=== PATIENT | female | born 1945 | race Hispanic/Latino ===

== ENCOUNTER → 2017-12-01 | Outpatient (CLI) | payer OTHER ==
[~2017-12-01] MED LIST: LISI-613 PO; NAPR-1023 PO
== END | disposition home or self-care (01) ==
LOC: OIH 12:49
PROVIDERS: ATTEND Internal Medicine Cardiovascular Disease
DX: Z13.6 Encounter for screening for cardiovascular disorders (principal)
CPT/HCPCS: 75571

== ENCOUNTER 2019-09-16 07:38 | Emergency (ER) | payer MEDICARE ==
[2019-09-16 08:21] LABS: APPEARANCE,URINE Clear (CLEAR); BILIRUBIN,URINE Negative (NEGATIVE); COLOR,URINE Yellow (YELLOW); GLUCOSE, URINE (UA) Negative (NEGATIVE); KETONES,URINE Negative (NEGATIVE); LEUKOCYTE ESTERASE ,URINE Trace (NEGATIVE); NITRATE,URINE Negative (NEGATIVE); OCCULT BLOOD,URINE Negative (NEGATIVE); PROTEIN,URINE Negative (NEGATIVE)
[2019-09-16 08:45] LABS: BACTERIA,URINE Few /HPF (None Seen); RBC,URINE 0-1 /HPF (0-1)
[2019-09-16 09:01] LABS: BASOPHILS % (AUTO) 0.2 % (0.0-5.0); EOSINOPHILS % (AUTO) 0.4 % (0.0-8.0); HEMATOCRIT 35.6 % (36-48); LYMPHOCYTES % (AUTO) 15.1 % (21.0-51.0); MEAN CORPUSCULAR HEMOGLOBIN 30.9 pg (27.0-33.0); MEAN CORPUSCULAR VOLUME 90.8 fL (79-99); MONOCYTES % (AUTO) 8.9 % (3.0-13.0); PLATELET COUNT (AUTO) 157 K/uL (130-400); RED BLOOD CELL COUNT(AUTO) 3.92 MIL/uL (4.00-5.50); RED CELL DISTRIBUTION WIDTH 14.6 % (11.0-15.5); WHITE BLOOD COUNT (AUTO) 4.7 K/uL (4.8-10.8)
[2019-09-16 09:17] LABS: CREATININE 1.3 mg/dL (0.5-1.5); POTASSIUM 3.6 mmol/L (3.5-5.1)
[2019-09-16 09:23] LABS: ALBUMIN 3.5 g/dL (3.5-5.0); BILIRUBIN,TOTAL 0.9 mg/dL (0.2-1.0); TOTAL PROTEIN, SERUM 7.3 g/dL (6.0-8.3)
== END 2019-09-16 09:38 | disposition home or self-care (01) ==
LOC: EDH 07:38
DX: R42 Dizziness and giddiness (principal); F41.9 Anxiety disorder, unspecified; I10 Essential (primary) hypertension; F32.9 Major depressive disorder, single episode, unspecified; Z79.899 Other long term (current) drug therapy; Z98.890 Other specified postprocedural states
CPT/HCPCS: 36415; 71045; 80053; 81001; 84484; 85025; 93005

== ENCOUNTER → 2020-12-17 | Outpatient (CLI) | payer SELFPAY ==
[~2020-12-17] MED LIST changes: -LISI-613 PO; +LISI20TA24 PO
== END | disposition home or self-care (01) ==
LOC: RAH 10:56
PROVIDERS: ATTEND Internal Medicine Cardiovascular Disease
DX: Z13.6 Encounter for screening for cardiovascular disorders (principal); I25.10 Atherosclerotic heart disease of native coronary artery without angina pectoris
CPT/HCPCS: 75571

== ENCOUNTER → 2021-06-05 | Outpatient (CLI) | payer MEDICARE ==
[~2021-06-05] MED LIST changes: +GADOTERATE MEGLUMINE 10 MMOL/20 ML VIAL IV ONE
== END | disposition home or self-care (01) ==
LOC: RAH 12:35
PROVIDERS: ATTEND Family Medicine
DX: G44.89 Other headache syndrome (principal); R42 Dizziness and giddiness
CPT/HCPCS: 70553; A9575

== ENCOUNTER 2022-02-12 07:17 | Emergency (ER) | payer MEDICARE ==
[~2022-02-12] VITALS: Ht 152.4 cm; Wt 77.1 kg
[~2022-02-12 07:17] MED LIST changes: -GADOTERATE MEGLUMINE 10 MMOL/20 ML VIAL IV ONE
[2022-02-12 07:52] LABS: BASOPHILS % (AUTO) 0.6 % (0.0-5.0); EOSINOPHILS % (AUTO) 5.1 % (0.0-8.0); HEMATOCRIT 41.8 % (36-48); LYMPHOCYTES % (AUTO) 40.9 % (21.0-51.0); MEAN CORPUSCULAR HEMOGLOBIN 31.8 pg (27.0-33.0); MEAN CORPUSCULAR VOLUME 93.7 fL (79-99); MONOCYTES % (AUTO) 11.4 % (3.0-13.0); NEUTROPHILS % (AUTO) 41.6 % (40.0-77.0); PLATELET COUNT (AUTO) 175 K/uL (130-400); RED BLOOD CELL COUNT(AUTO) 4.46 MIL/uL (4.00-5.50); RED CELL DISTRIBUTION WIDTH 13.2 % (11.0-15.5); WHITE BLOOD COUNT (AUTO) 4.7 K/uL (4.8-10.8)
[2022-02-12 08:06] LABS: INR 0.94 (0.85-1.15); PROTHROMBIN TIME 10.3 SEC (9.6-11.6)
[2022-02-12 08:16] LABS: ALBUMIN 3.9 g/dL (3.5-5.0); BILIRUBIN,TOTAL 0.9 mg/dL (0.2-1.0); POTASSIUM 3.2 mmol/L (3.5-5.1)
[2022-02-12 08:25] LABS: MAGNESIUM 2.2 mg/dL (1.80-2.40)
[2022-02-12] MEDS ORDERED: POTASSIUM BICARB/CIT AC 25 MEQ TABLET.EFF PO ONE (10:00)
[2022-02-12 10:24] LABS: APPEARANCE,URINE Clear (CLEAR); BILIRUBIN,URINE Negative (NEGATIVE); COLOR,URINE Yellow (YELLOW); GLUCOSE, URINE (UA) Negative (NEGATIVE); KETONES,URINE Negative (NEGATIVE); LEUKOCYTE ESTERASE ,URINE Small (NEGATIVE); NITRATE,URINE Negative (NEGATIVE); OCCULT BLOOD,URINE Negative (NEGATIVE); PH,URINE 5.5 (5.0-8.0); PROTEIN,URINE Negative (NEGATIVE)
[2022-02-12 11:07] LABS: BACTERIA,URINE Rare /HPF (None Seen); RBC,URINE 0-1 /HPF (0-1); SQUAMOUS EPITHELIAL CELL,UR Few /HPF (0-2); WBC,URINE 0-1 /HPF (0-1)
[2022-02-12 13:13] VITALS: BP 117/76
== END 2022-02-12 14:07 | disposition home or self-care (01) ==
LOC: EDH 07:17
DX: E87.6 Hypokalemia (principal); B34.9 Viral infection, unspecified; R42 Dizziness and giddiness; R07.89 Other chest pain; Z20.822 Contact with and (suspected) exposure to COVID-19; E78.00 Pure hypercholesterolemia, unspecified; I10 Essential (primary) hypertension; Z79.1 Long term (current) use of non-steroidal anti-inflammatories (NSAID); Z79.899 Other long term (current) drug therapy
CPT/HCPCS: 36415; 71045; 80053; 81001; 83605; 83735; 84484 ×2; 85025; 85610; 87040 ×2; 87635; 87804 ×2; 93005 ×2; 99285; C9803

== ENCOUNTER 2023-01-20 09:59 | Emergency (ER) | payer MEDICARE ==
[~2023-01-20] VITALS: Ht 152.4 cm; Wt 78.5 kg
[2023-01-20 10:40] LABS: BASOPHILS % (AUTO) 0.5 % (0.0-5.0); EOSINOPHILS % (AUTO) 5.3 % (0.0-8.0); HEMATOCRIT 42.3 % (36-48); LYMPHOCYTES % (AUTO) 29.5 % (21.0-51.0); MEAN CORPUSCULAR HEMOGLOBIN 31.6 pg (27.0-33.0); MEAN CORPUSCULAR HGB CONC 33.8 g/dL (32.0-36.0); MEAN CORPUSCULAR VOLUME 93.4 fL (79-99); MONOCYTES % (AUTO) 14.1 % (3.0-13.0); NEUTROPHILS % (AUTO) 50.6 % (40.0-77.0); PLATELET COUNT (AUTO) 182 K/uL (130-400); RED BLOOD CELL COUNT(AUTO) 4.53 MIL/uL (4.00-5.50); RED CELL DISTRIBUTION WIDTH 13.2 % (11.0-15.5)
[2023-01-20 10:52] LABS: CREATININE 0.8 mg/dL (0.5-1.5); POTASSIUM 4.1 mmol/L (3.5-5.1)
[2023-01-20 10:57] LABS: ALBUMIN 4.1 g/dL (3.5-5.0); TOTAL PROTEIN, SERUM 8.1 g/dL (6.0-8.3)
[2023-01-20] MEDS ORDERED: METH4TAB3 PO (13:02)
[2023-01-20 13:39] VITALS: BP 133/63
== END 2023-01-20 13:40 | disposition home or self-care (01) ==
LOC: EDH 09:59
DX: S83.92XA Sprain of unspecified site of left knee, initial encounter (principal); S20.219A Contusion of unspecified front wall of thorax, initial encounter; E78.00 Pure hypercholesterolemia, unspecified; I10 Essential (primary) hypertension; Z79.899 Other long term (current) drug therapy; W18.2XXA Fall in (into) shower or empty bathtub, initial encounter; Y93.E1 Activity, personal bathing and showering; Y92.89 Other specified places as the place of occurrence of the external cause; Y99.8 Other external cause status
CPT/HCPCS: 29505; 36415; 71250; 73562; 80053; 85025

== ENCOUNTER 2023-05-06 19:44 | Emergency (ER) | payer MEDICARE ==
[~2023-05-06] VITALS: Ht 152.4 cm; Wt 76.7 kg
[~2023-05-06 19:44] MED LIST changes: +METH4TAB3 PO
[2023-05-06] MEDS ORDERED: ASPIRIN 81MG CHEW TAB ONE (20:18)
[2023-05-06] MEDS: NITROGLYCERIN 0.4 MG SL TAB SL PRN ×3 (20:22→20:37)
[2023-05-06] MEDS ORDERED: ASPIRIN 81MG CHEW TAB PO ONE (20:30)
[2023-05-06 20:33] LABS: BASOPHILS # (AUTO) 0.02 K/uL (0.00-0.20); BASOPHILS % (AUTO) 0.4 % (0.0-5.0); EOSINOPHILS # (AUTO) 0.12 K/uL (0.00-0.70); EOSINOPHILS % (AUTO) 2.7 % (0.0-8.0); HEMATOCRIT 39.8 % (36-48); IMMATURE GRANULOCYTE ABSOLUTE 0.01 K/uL (0-1); LYMPHOCYTES # (AUTO) 1.3 K/uL (1.0-4.8); LYMPHOCYTES % (AUTO) 29.1 % (21.0-51.0); MEAN CORPUSCULAR HEMOGLOBIN 32.1 pg (27.0-33.0); MEAN CORPUSCULAR HGB CONC 34.2 g/dL (32.0-36.0); MEAN CORPUSCULAR VOLUME 93.9 fL (79-99); MONOCYTES # (AUTO) 0.6 K/uL (0.1-1.0); MONOCYTES % (AUTO) 14.2 % (3.0-13.0); NEUTROPHILS # (AUTO) 2.4 K/uL (1.8-7.7); NEUTROPHILS % (AUTO) 53.4 % (40.0-77.0); PLATELET COUNT (AUTO) 174 K/uL (130-400); RED BLOOD CELL COUNT(AUTO) 4.24 MIL/uL (4.00-5.50); RED CELL DISTRIBUTION WIDTH 12.8 % (11.0-15.5); WHITE BLOOD COUNT (AUTO) 4.5 K/uL (4.8-10.8)
[2023-05-06 20:45] LABS: CREATININE 0.8 mg/dL (0.5-1.5)
[2023-05-06 20:49] LABS: ALBUMIN 3.9 g/dL (3.5-5.0); BILIRUBIN,TOTAL 0.4 mg/dL (0.2-1.0); TOTAL PROTEIN, SERUM 7.6 g/dL (6.0-8.3)
[2023-05-06 23:02] VITALS: BP 122/74; PULSE 86; RESP 16; O2SAT 97
[2023-05-06] MEDS ORDERED: ASPI-1012 PO (23:51)
[2023-05-06] MEDS ORDERED: NITR0.4T50 SL (23:51)
== END 2023-05-07 00:22 | disposition home or self-care (01) ==
LOC: EDH 19:44
DX: I20.8 Other forms of angina pectoris (principal); I10 Essential (primary) hypertension; F41.9 Anxiety disorder, unspecified; Z79.52 Long term (current) use of systemic steroids; Z79.899 Other long term (current) drug therapy
CPT/HCPCS: 36415; 71045; 80053; 83690; 84484; 85025; 93005

== ENCOUNTER 2024-04-06 11:40 | Emergency (ER) | payer OTHER, MEDICARE ==
[~2024-04-06] VITALS: Ht 152.4 cm; Wt 75.7 kg
[~2024-04-06 11:40] MED LIST changes: +ASPI-1012 PO; +NITR0.4T50 SL
[2024-04-06 12:20] LABS: BASOPHILS # (AUTO) 0.02 K/uL (0.00-0.20); BASOPHILS % (AUTO) 0.4 % (0.0-5.0); EOSINOPHILS # (AUTO) 0.22 K/uL (0.00-0.70); EOSINOPHILS % (AUTO) 4.1 % (0.0-8.0); HEMATOCRIT 44.7 % (36-48); IMMATURE GRANULOCYTE ABSOLUTE 0.01 K/uL (0-1); LYMPHOCYTES # (AUTO) 1.9 K/uL (1.0-4.8); LYMPHOCYTES % (AUTO) 35.4 % (21.0-51.0); MEAN CORPUSCULAR HEMOGLOBIN 32.1 pg (27.0-33.0); MEAN CORPUSCULAR HGB CONC 34.5 g/dL (32.0-36.0); MEAN CORPUSCULAR VOLUME 93.1 fL (79-99); MONOCYTES # (AUTO) 0.6 K/uL (0.1-1.0); MONOCYTES % (AUTO) 11.5 % (3.0-13.0); NEUTROPHILS # (AUTO) 2.6 K/uL (1.8-7.7); NEUTROPHILS % (AUTO) 48.4 % (40.0-77.0); PLATELET COUNT (AUTO) 197 K/uL (130-400); RED CELL DISTRIBUTION WIDTH 13.1 % (11.0-15.5); WHITE BLOOD COUNT (AUTO) 5.4 K/uL (4.8-10.8)
[2024-04-06 12:21] LABS: APPEARANCE,URINE CLEAR (CLEAR); BILIRUBIN,URINE NEGATIVE (NEGATIVE); COLOR,URINE YELLOW (YELLOW); GLUCOSE, URINE (UA) NEGATIVE (NEGATIVE); KETONES,URINE NEGATIVE (NEGATIVE); LEUKOCYTE ESTERASE ,URINE 250 Leu/uL (NEGATIVE); NITRATE,URINE NEGATIVE (NEGATIVE); OCCULT BLOOD,URINE NEGATIVE (NEGATIVE); PROTEIN,URINE NEGATIVE (NEGATIVE); UROBILINOGEN,URINE 0.2 mg/dL (0.2-1.0)
[2024-04-06 12:26] LABS: ADD UA MICROSCOPIC YES
[2024-04-06 12:28] LABS: MUCUS,URINE RARE LPF (None Seen); SQUAMOUS EPITHELIAL CELL,UR MANY /HPF (0-2)
[2024-04-06 12:30] LABS: CREATININE 0.9 mg/dL (0.5-1.0); POTASSIUM 4.1 mmol/L (3.5-5.1)
[2024-04-06 12:44] LABS: B-TYPE NATRIURETIC PEPTIDE 15 pg/mL (0-100)
[2024-04-06 15:40] VITALS: BP 143/81; PULSE 70; RESP 16; O2SAT 99
[2024-04-06] MEDS ORDERED: MACR100 PO (16:06)
== END 2024-04-06 16:15 | disposition home or self-care (01) ==
LOC: EDH 11:40
DX: N39.0 Urinary tract infection, site not specified (principal); I95.9 Hypotension, unspecified; I10 Essential (primary) hypertension; Z79.82 Long term (current) use of aspirin; Z79.899 Other long term (current) drug therapy; Z98.890 Other specified postprocedural states
CPT/HCPCS: 36415; 71045; 80048; 81001; 82550; 83880; 84484; 85025; 87086; 93005

== ENCOUNTER 2025-01-06 12:44 | Emergency (ER) | payer OTHER, MEDICARE ==
[~2025-01-06] VITALS: Ht 152.4 cm; Wt 76.2 kg
[~2025-01-06 12:44] MED LIST changes: +MACR100 PO; -NAPR-1023 PO; +NAPR-1194 PO
[2025-01-06 13:49] LABS: APPEARANCE,URINE CLEAR (CLEAR); BILIRUBIN,URINE SMALL mg/dL (NEGATIVE); COLOR,URINE YELLOW (YELLOW); GLUCOSE, URINE (UA) NEGATIVE (NEGATIVE); KETONES,URINE NEGATIVE (NEGATIVE); LEUKOCYTE ESTERASE ,URINE MODERATE Leu/uL (NEGATIVE); NITRATE,URINE NEGATIVE (NEGATIVE); OCCULT BLOOD,URINE NEGATIVE (NEGATIVE); PROTEIN,URINE NEGATIVE (NEGATIVE)
[2025-01-06 14:02] LABS: ADD UA MICROSCOPIC YES; RBC,URINE None Seen /HPF (0-1)
[2025-01-06 14:03] LABS: AMORPHOUS SEDIMENT,UR Moderate /LPF (None Seen); BACTERIA,URINE Moderate /HPF (None Seen)
[2025-01-06] MEDS: ketOROlac 15MG/ML VIAL (15MG/ML) IV STA (14:11)
[2025-01-06] MEDS: ondanSETRON 4MG INJ IVP STA (14:11)
[2025-01-06] MEDS: 0.9%NACL 1000ML 1,000 ML IV STA (14:13)
[2025-01-06 14:16] LABS: BASOPHILS # (AUTO) 0.03 K/uL (0.00-0.20); BASOPHILS % (AUTO) 0.7 % (0.0-5.0); EOSINOPHILS # (AUTO) 0.13 K/uL (0.00-0.70); EOSINOPHILS % (AUTO) 2.8 % (0.0-8.0); HEMATOCRIT 46.3 % (36-48); IMMATURE GRANULOCYTE ABSOLUTE 0.01 K/uL (0-1); LYMPHOCYTES # (AUTO) 1.1 K/uL (1.0-4.8); LYMPHOCYTES % (AUTO) 23.5 % (21.0-51.0); MEAN CORPUSCULAR HEMOGLOBIN 24.7 pg (27.0-33.0); MEAN CORPUSCULAR HGB CONC 30.5 g/dL (32.0-36.0); MEAN CORPUSCULAR VOLUME 81.1 fL (79-99); MONOCYTES # (AUTO) 0.5 K/uL (0.1-1.0); MONOCYTES % (AUTO) 11.3 % (3.0-13.0); NEUTROPHILS # (AUTO) 2.8 K/uL (1.8-7.7); NEUTROPHILS % (AUTO) 61.5 % (40.0-77.0); PLATELET COUNT (AUTO) 305 K/uL (130-400); RED BLOOD CELL COUNT(AUTO) 5.71 MIL/uL (4.00-5.50); RED CELL DISTRIBUTION WIDTH 18.8 % (11.0-15.5); WHITE BLOOD COUNT (AUTO) 4.6 K/uL (4.8-10.8)
[2025-01-06 14:18] LABS: POTASSIUM 4.4 mmol/L (3.5-5.1)
[2025-01-06 14:22] LABS: ALBUMIN 3.6 g/dL (3.5-5.0); BILIRUBIN,DIRECT 0.4 mg/dL (0.0-0.3); BILIRUBIN,TOTAL 0.9 mg/dL (0.2-1.0); TOTAL PROTEIN, SERUM 7.7 g/dL (6.0-8.3)
--- NOTE | 2025-01-06 14:29 | HMCIMG ---
US ABDOMINAL RUQ\E\LTD HISTORY: ruq pain TECHNIQUE: US ABDOMINAL RUQ\E\LTD. FINDINGS: LIVER: Diffuse increased echogenicity of the liver is seen suggestive of hepatic parenchymal disease, such as hepatic steatosis. 2 heterogeneous masses seen in the right hepatic lobe measuring 7.7 x 8.3 cm and 3.6 x 3.3 cm. GALLBLADDER: No gallstone or wall thickening is seen. CBD: Measures up to not visualizedcm. PANCREAS: The visualized pancreas appears within normal limits. RIGHT KIDNEY: measures 11.4cm in length. No hydronephrosis or calculi. Study is degraded to prominent bowel gas. IMPRESSION: Hepatic steatosis. 2 hepatic masses are seen in the right hepatic lobe, the largest measuring 8.3 cm.
--- NOTE | 2025-01-06 15:20 | ERN ---
ED Note History of Present Illness Stated Complaint: RUQ PAIN, NAUSEA, DIARRHEA X3 DAYS Chief Complaint: Abdominal Pain Time Seen by MD: 13:16 Time Seen by Midlevel: 13:20 Dictation: 79-year-old female with a history of fatty liver coming in complaining of right upper quadrant pain for three days. Patient states associated symptom of nausea, no vomiting. Patient states she has pain 10/10 was seen by PCP three days ago and was given Tylenol. Patient states the PCP gave her an appointment for [facility] on 01/16. Denies any chest pain, chest discomfort, no fevers, no vomiting. Allergies: Coded Allergies: No Known Drug Allergies (Unverified Allergy, Unknown, 03/03/16) Home Meds Active Scripts Nitrofurantoin/Nitrofuran Mac (Macrobid) 100 Mg Cap, 100 MG PO BID for 5 Days, #10 CAP Prov:RICH [place] 04/06/24 Nitroglycerin (Nitroglycerin) 0.4 Mg Tab.subl, 0.4 MG SL AD, #100 TAB.SL 2 Refills one tab SL as needed for chest pain [max = 3 tabs over fifteen minutes] call 911 if you have chest pain Prov:JAE AMAYA Sr., MD 05/06/23 Aspirin (ASPIRIN) 325 Mg Tablet, 325 MG PO DAILY, #30 TAB 2 Refills Prov:JAE AMAYA Sr., MD 05/06/23 Methylprednisolone (Medrol) 4 Mg Tab.ds.pk, 4 MG PO AD for 6 Days, #1 PACK Prov:JARRET GAITAN MD 01/20/23 Reported Medications Naproxen (Naproxen) 500 Mg Tablet, 500 MG PO [id number] PRN for PAIN LEVEL 1 TO 5, TAB 03/03/16 Lisinopril (Lisinopril) 20 Mg Tablet, 20 MG PO DAILY, TAB 03/03/16 Past Medical History Past Medical History: Gallstones, High Cholesterol, Hypertension Additional Past Medical Hx: VERTIGO Surgical History: Unknown Surgical History Other: LEFT SHOULDER Social History: Negative, Lives with family Review of System Dictation Constitutional: Negative for fever,chills, and weight loss Eyes: Negative for injury, pain,redness, and discharge ENT: Negative for injury,pain or swelling Cardiovascular: Negative for chest pain, palpitations, and edema Respiratory: Negative for shortness of breath, cough, and wheezing, Abdomen/GI: Positive for right upper quadrant pain and nausea, no vomiting, no diarrhea, and no constipation Back: Negative for injury and pain : Negative for injury, bleeding and discharge MS/Extremity: Negative for injury and deformity Skin: Negative for rash, and discoloration Neuro: Negative for headache, weakness, numbness, tingling, and seizure Psych: Negative for suicide ideation, homicidal ideation, and hallucinations Review of Systems: was completed Initial Vital Sign VS Vital Signs Date Time Temp Pulse Resp B/P (MAP) Pulse Ox O2 Delivery O2 Flow Rate FiO2 01/06/25 12:45 98.1 94 14 144/75 98 Room Air 0 Physical Exam Dictation General: awake, alert, NAD Head/Face: Normocephalic, atraumatic Eyes: PERRL, EOMI, vision at baseline ENT: oral cavity clear, TMs clear, no signs of infection Neck: Trachea midline, supple, no nuchal rigidity Cardiovascular: RRR, normal S1/S2, No MRGs, no JVD Respiratory: CTAB, no respiratory distress, No rales or wheezes Abdomen: Soft, non-tender, non-distended, normal bowel sounds, no guarding or re bound. Skin: Warm, dry, normal turgor, no rash MS/Extremity: Pulses equal, no cyanosis, neurovascular intact, FROM Neuro: COAx4, GCS 15, strength 5/5, CN 2-12 intact, normal cerebellar exam, normal gait, Psych: Normal behavior, mood, and affect normal Results (Laboratory/Radiology) Laboratory/Radiology Laboratory Tests Test 01/06/25 08:02 01/06/25 14:00 Urine Color YELLOW (YELLOW) Urine Appearance CLEAR (CLEAR) Urine pH 6.0 (5.0-8.0) Urine Specific [place] 1.015 (1.001-1.031) Urine Protein NEGATIVE mg/dL (NEGATIVE) Urine Glucose (UA) NEGATIVE mg/dL (NEGATIVE) Urine Ketones NEGATIVE mg/dL (NEGATIVE) Urine Occult Blood NEGATIVE (NEGATIVE) Urine Nitrate NEGATIVE (NEGATIVE) Urine Bilirubin SMALL mg/dL (NEGATIVE) H Urine Urobilinogen 2.0 mg/dL (0.2-1.0) H Urine Leukocyte Esterase MODERATE Zakia/uL Urine RBC None Seen /HPF (0-1) Urine WBC 6-10 /HPF (0-1) H Urine Squamous Epithelial Cells 10-25 /HPF (0-2) Urine Amorphous Crystals (Auto) /LPF (None Seen) Urine Amorphous Sediment Moderate /LPF (None Seen) H Urine Bacteria Moderate /HPF (None Seen) H Urine Hyaline Casts 2-5 /LPF (0-1 /LPF) H White Blood Count 4.6 K/uL (4.8-10.8) L Red Blood Count 5.71 MIL/uL (4.00-5.50) H Hemoglobin 14.1 g/dL (12.0-16.0) Hematocrit 46.3 % (36-48) Mean Corpuscular Volume 81.1 fL (79-99) Mean Corpuscular Hemoglobin 24.7 pg (27.0-33.0) L Mean Corpuscular Hemoglobin Concent 30.5 g/dL (32.0-36.0) L Red Cell Distribution Width 18.8 % (11.0-15.5) H Platelet Count 305 K/uL (130-400) Mean Platelet Volume 9.7 fL (7.5-10.5) Immature Granulocyte % (Auto) 0.2 % (0-1) Neutrophils (%) (Auto) 61.5 % (40.0-77.0) Lymphocytes (%) (Auto) 23.5 % (21.0-51.0) Monocytes (%) (Auto) 11.3 % (3.0-13.0) Eosinophils (%) (Auto) 2.8 % (0.0-8.0) Basophils (%) (Auto) 0.7 % (0.0-5.0) Neutrophils # (Auto) 2.8 K/uL (1.8-7.7) Lymphocytes # (Auto) 1.1 K/uL (1.0-4.8) Monocytes # (Auto) 0.5 K/uL (0.1-1.0) Eosinophils # (Auto) 0.13 K/uL (0.00-0.70) Basophils # (Auto) 0.03 K/uL (0.00-0.20) Absolute Immature Granulocyte (auto 0.01 K/uL (0-1) Nucleated Red Blood Cells 0.0 % (0.0-0.19) Red Blood Cell Morphology See comments Sodium Level 140 mmol/L (136-145) Potassium Level 4.4 mmol/L (3.5-5.1) Chloride Level 105 mmol/L (101-111) Carbon Dioxide Level 28 mmol/L (21-32) Blood Urea Nitrogen 13 mg/dL (7-18) Creatinine 1.0 mg/dL (0.5-1.0) Glomerular Filtration Rate Calc 57 mL/min (>90) Random Glucose 138 mg/dL (70-105) H Total Calcium 9.6 mg/dL (8.5-10.1) Total Bilirubin 0.9 mg/dL (0.2-1.0) Direct Bilirubin 0.4 mg/dL (0.0-0.3) H Aspartate Amino Transf (AST/SGOT) 213 U/L (10-37) H Alanine Aminotransferase (ALT/SGPT) 42 U/L (12-78) Alkaline Phosphatase 145 U/L (50-136) H Troponin I High Sensitivity < 4 ng/L (4-50) L Total Protein 7.7 g/dL (6.0-8.3) Albumin 3.6 g/dL (3.5-5.0) Lipase 33 U/L (16-77) Labs Reviewed?: Yes EKG Comment: EKGS DONE AT 3:27 P.M.. SINUS RHYTHM AT A RATE OF 70. INFERIOR INFARCT, OLD. NO ST ELEVATIONS, INTERPRETED BY ER Ultrasound Comment: [place] [address] IMAGING REPORT Signed PATIENT: PARISH LADD MR#: [id number] : 1945 SEX: F AGE: 79 LOCATION: ED ORDER 1322 STATUS: REG ER REPORT#: [id number] SERVICE 1321 REASON: ruq pain ORDERING PHYSICIAN: ILANA TERRAZAS NP PROCEDURE: ABDRUQLTD - US ABDOMINAL RUQ\LTD US ABDOMINAL RUQ\E\LTD HISTORY: ruq pain TECHNIQUE: US ABDOMINAL RUQ\E\LTD. FINDINGS: LIVER: Diffuse increased echogenicity of the liver is seen suggestive of hepatic parenchymal disease, such as hepatic steatosis. 2 heterogeneous masses seen in the right hepatic lobe measuring 7.7 x 8.3 cm and 3.6 x 3.3 cm. GALLBLADDER: No gallstone or wall thickening is seen. CBD: Measures up to not visualizedcm. PANCREAS: The visualized pancreas appears within normal limits. RIGHT KIDNEY: measures 11.4cm in length. No hydronephrosis or calculi. Study is degraded to prominent bowel gas. IMPRESSION: Hepatic steatosis. 2 hepatic masses are seen in the right hepatic lobe, the largest measuring 8.3 cm. DICTATED BY: OMI GREGG MD DATE: 01/06/251426 ELECTRONICALLY SIGNED BY: OMI GREGG MD DATE: 01/06/25 142 ED Course ED Course Orders Procedure Category Date Status Time Urinalysis Profile LAB 01/06/25 Complete 13:10 Cbc With Differential LAB 01/06/25 Complete 13:21 Basic Metabolic Panel LAB 01/06/25 Complete 13:21 Lipase LAB 01/06/25 Complete 13:21 Hepatic Function Panel LAB 01/06/25 Complete 13:21 Us Abdominal Ruq\Ltd US 01/06/25 Resulted 13:21 0.9%Nacl 1000ml (Ns PHA 01/06/25 Complete 1000ml) 13:21 Ondansetron 4mg Inj PHA 01/06/25 In Process (Zofran 4mg Inj) 13:21 Ketorolac PHA 01/06/25 Complete Tromethamine 15mg/Ml 13:21 Culture Urine TRUMAN 01/06/25 In Process 14:02 12 Lead Ekg Tracing- EKG 01/06/25 Complete Technical 15:16 Troponin I High LAB 01/06/25 Complete Sensitivity 15:16 Ceftriaxone 1g Vial PHA 01/06/25 Complete (Rocephine 1g Inj) 15:20 Current Medications Medications (Trade) Dose Ordered Sig/Jorgito Route PRN Reason Start Time Stop Time Status Last Admin Dose Admin Ceftriaxone Sodium (ROCEphine 1G INJ) 1 gm ONCE STAT IVPB 01/06/25 15:20 01/06/25 15:29 DC Ketorolac Tromethamine (toRADol) 15 mg ONCE STAT IV 01/06/25 13:21 01/06/25 13:25 DC 01/06/25 14:11 Ondansetron HCl (zoFRAN 4MG INJ) 4 mg ONCE STAT IVP 01/06/25 13:21 01/06/25 13:25 DC 01/06/25 14:11 Sodium Chloride 1,000 ml @ 1,000 mls/hr Q1H STAT IV 01/06/25 13:21 01/06/25 14:20 DC 01/06/25 14:13 Vital Signs Date Time Temp Pulse Resp B/P (MAP) Pulse Ox O2 Delivery O2 Flow Rate FiO2 01/06/25 12:45 98.1 94 14 144/75 98 Room Air 0 Medical Decision Making MDM MDM: 79-year-old female with a history of fatty liver coming in complaining of right upper quadrant pain for three days. Patient states associated symptom of nausea, no vomiting. Patient states she has pain 06/08 was seen by PCP three days ago and was given Tylenol. Patient states the PCP gave her an appointment for [facility] on 01/16. Denies any chest pain, chest discomfort, no fevers, no vomiting.CBC SHOWS LEUKOCYTOPENIA 4.6, NO ANEMIA, NO THROMBOCYTOPENIA. CHEMISTRY SHOWS NO ELECTROLYTE ABNORMALITY, KIDNEY FUNCTION WITHIN NORMAL RANGE. AST IS 213. UA UA SHOWS EVIDENCE OF URINARY TRACT INFECTION. ROCEPHIN GIVEN IN THE EMERGENCY ROOM IF PATIENT WILL BE DISCHARGED WITH THE ANTIBIOTIC. DISCUSSED FINDINGS WITH THE PATIENT. GAVE THE OPTION OF PATIENT TO BE ADMITTED FOR FURTHER EVALUATION OF THE LIVER MASSES, HOWEVER PATIENT STATES SHE RATHER GO HOME AND FOLLOW UP OUTPATIENT WITH THE GI SPECIALIST. DISCUSSED WITH THE PATIENT THE IMPORTANCE OF STAYING IN THE HOSPITAL AND FOLLOWING UP EXTENSIVELY. DISCUSSED ALSO IF PATIENT FEELS BAD BETWEEN NOW IN THE APPOINTMENT SHE NEEDS TO RETURN BACK TO THE EMERGENCY ROOM. PATIENT IS AWARE THIS COULD BE FROM MALIGNANT ETIOLOGY SHE SHE VERBALIZED UNDERSTANDING AND WOULD RATHER BE DISCHARGED AND FOLLOW UP WITH GI. Differential diagnosis: ACS, CHOLELITHIASIS, CHOLECYSTITIS, PANCREATITIS Rationale: Tests considered and ordered secondary to shared decision making include: Previous outside records reviewed: Old ER visits. Risk of complication and/or morbidity or mortality of patient management: None Medications-Per medication reconciliation Need for hospitalization: Patient does not meet criteria for hospitalization. Need for emergency major/minor surgery: No There are no social concerns with this patient. Prescription drug management Prescriptions will include symptomatic care Patient's prior external medical records from other ER visits were reviewed by me as indicated. Prior testing and results from previous visits were reviewed. Prior tests were taken into account with medical decision making and resource utilization, independent historian/historians were used to obtain complete medical history. I independently interpreted the test that were performed, results were reviewed by me and considered findings on radiology if ordered. Medical management and examination interpretation discussions were had by me with other qualified healthcare professionals as indicated for the patient's care. DX & DISP Disposition: Discharge Departure Impression: Primary Impression: Hepatic steatosis Additional Impression: Liver mass, right lobe Condition: Stable Additional Instructions: PORFAVOR SEGUIR CON EL GATROENTEROLOGO CON EL QUE YA TIENE CARLO. SI [place] SIMPTOMAS EMPEORAN DE AQUI A ANGELA CARLO REGRESE A LA EMERGENCIA Referrals: JANEEN SONG (PCP) Time of Disposition: 15:56 I have reviewed the case, and I agree with, Diagnosis and Plan ILANA TERRAZAS NP January 06, 2025 15:20
--- NOTE | 2025-01-06 15:30 | EKG ---
[facility] Test Date: 2025-01-06 Test Time: 15:27:59 Pat Name: PARISH LADD Department: ED Room: Gender: F Intermediate Manager: [id number] : 1945 Requested By: ILANA TERRAZAS Order Number: [id number] Reading MD: Alec Johnson Measurements Intervals [place] Rate: 70 P: 29 DC: 164 QRS: -45 QRSD: 84 T: 27 QT: 419 QTc: 451 Interpretive Statements Sinus rhythm Compared to ECG 04/06/2024 12:10:30 No significant changes Electronically Signed On 01-07-2025 13:15:46 CDT by Alec Johnson Please click the below link to view image of tracing.
[2025-01-06 16:06] VITALS: BP 148/69; PULSE 89; RESP 16; TEMP 98.3; O2SAT 97
[2025-01-06] MEDS: cefTRIAXone 1G VIAL IVPB STA (16:11)
--- NOTE | 2025-01-06 16:18 | NUR ---
PT GIVEN INSTRUCTIONS FOR HOME, VERBALIZED UNDERSTANDING, IV REMOVED CATHETER INTACT, PT HAS NO NEW MEDICATIONS. PT AAOX4 STABLE NO DISTRESS VITALS WNL NO C/O PAIN.
== END 2025-01-06 16:25 | disposition home or self-care (01) ==
LOC: EDH 12:44
DX: K76.0 Fatty (change of) liver, not elsewhere classified (principal); R16.0 Hepatomegaly, not elsewhere classified; E78.00 Pure hypercholesterolemia, unspecified; I10 Essential (primary) hypertension; Z79.82 Long term (current) use of aspirin; Z79.899 Other long term (current) drug therapy
CPT/HCPCS: 99285; 96374; 76705; 96375; 96361; 80076; 84484; 80048; 83690; 85025; 87086; 81001; 36415; 93005; J1885; J7030; J0696; J2405

== ENCOUNTER → 2025-01-19 | Outpatient (CLI) | payer OTHER, MEDICAID ==
[~2025-01-19] MED LIST changes: +LOSA100T59 PO
[2025-01-19 08:50] LABS: INR 1.08 (0.85-1.15); PROTHROMBIN TIME 11.4 SEC (9.6-11.6)
[2025-01-19 08:51] LABS: PARTIAL THROMBOPLASTIN TIME 27.1 SEC (26.3-35.5)
[2025-01-19 08:53] LABS: % IRON SATURATION 7.5 % (22-44); ALBUMIN 3.7 g/dL (3.5-5.0); BILIRUBIN,DIRECT 0.4 mg/dL (0.0-0.3); BILIRUBIN,TOTAL 1.2 mg/dL (0.2-1.0); CREATININE 0.8 mg/dL (0.5-1.0); TOTAL PROTEIN, SERUM 8.1 g/dL (6.0-8.3)
[2025-01-19 08:55] LABS: BASOPHILS # (AUTO) 0.03 K/uL (0.00-0.20); BASOPHILS % (AUTO) 0.8 % (0.0-5.0); EOSINOPHILS # (AUTO) 0.14 K/uL (0.00-0.70); EOSINOPHILS % (AUTO) 3.5 % (0.0-8.0); HEMATOCRIT 46.2 % (36-48); IMMATURE GRANULOCYTE ABSOLUTE 0.01 K/uL (0-1); LYMPHOCYTES # (AUTO) 0.8 K/uL (1.0-4.8); LYMPHOCYTES % (AUTO) 20.5 % (21.0-51.0); MEAN CORPUSCULAR HEMOGLOBIN 24.9 pg (27.0-33.0); MEAN CORPUSCULAR HGB CONC 31.6 g/dL (32.0-36.0); MEAN CORPUSCULAR VOLUME 78.7 fL (79-99); MONOCYTES # (AUTO) 0.3 K/uL (0.1-1.0); MONOCYTES % (AUTO) 8.5 % (3.0-13.0); NEUTROPHILS # (AUTO) 2.7 K/uL (1.8-7.7); NEUTROPHILS % (AUTO) 66.4 % (40.0-77.0); PLATELET COUNT (AUTO) 346 K/uL (130-400); RED BLOOD CELL COUNT(AUTO) 5.87 MIL/uL (4.00-5.50); RED CELL DISTRIBUTION WIDTH 19.8 % (11.0-15.5)
[2025-01-20 06:11] LABS: HEPATITIS A ANTIBODY IGM Negative (Negative); HEPATITIS A ANTIBODY TOTAL Positive (Negative)
[2025-01-20 10:13] LABS: ANTI-SCLERODERMA 70 <0.2 AI (0.0-0.9)
[2025-01-20 21:39] LABS: HEPATITIS B CORE AB TOTAL Non-Reactive (Nonreactive); HEPATITIS B CORE IGM ANTIBODY Non-Reactive (Negative); HEPATITIS C ANTIBODY Non-Reactive (Nonreactive)
[2025-01-24 10:15] LABS: HEPATITIS B SURFACE ANTIBODY Negative (Reactive)
== END | disposition home or self-care (01) ==
LOC: LAB 07:47
PROVIDERS: ATTEND Internal Medicine
DX: K76.9 Liver disease, unspecified (principal); R94.5 Abnormal results of liver function studies; R93.2 Abnormal findings on diagnostic imaging of liver and biliary tract; R77.2 Abnormality of alphafetoprotein; R10.10 Upper abdominal pain, unspecified
CPT/HCPCS: 36415; 80053; 82105; 82247; 82248; 82378; 83540; 83550; 85025; 85610; 85730; 86015; 86038; 86215; 86235; 86316; 86376; 86381; 86704; 86705; 86706; 86708; 86709; 86803

== ENCOUNTER → 2025-01-25 | Outpatient (CLI) | payer OTHER, MEDICAID ==
[~2025-01-25] MED LIST changes: +IOHEXOL-350 75 ML VIAL IV ONE
--- NOTE | 2025-01-25 10:09 | HMCIMG ---
CT ABDOMEN W/WO 3 PHASE HISTORY: Abdominal pain COMPARISON: None TECHNIQUE: Multiple sequential axial images of the abdomen were obtained from the dome of the diaphragm through iliac crests. Patient was given 75 cc of Omnipaque through intravenous route. Oral contrast was given. FINDINGS: No pleural effusion is seen bilaterally. There is no evidence of parenchymal disease or pulmonary nodule of the visualized lower lungs. Degenerative changes are seen of the thoracolumbar spine. There is right hepatic mass measuring 7.9 x 8.6 cm with central scar. Differential diagnosis would include hepatoma versus neoplastic process. No bowel obstruction is seen. Spleen, adrenal glands and pancreas are unremarkable. There is no evidence of hydronephrosis bilaterally. No evidence of renal stone is seen. Fecal material is seen in the colon. There are normal-sized retroperitoneal and mesenteric lymph nodes. No ascites is seen. Atherosclerotic changes are present. IMPRESSION: 1. There is right hepatic mass measuring 7.9 x 8.6 cm with central scar. Differential diagnosis would include hepatoma versus neoplastic process. No bowel obstruction is seen. CT was performed with one or more following dose reduction techniques: automated exposure control, adjustment of the mA and kv according to patient's size, or use of a iterative reconstruction technique.
== END | disposition home or self-care (01) ==
LOC: RAH 08:36
PROVIDERS: ATTEND Internal Medicine
DX: R16.0 Hepatomegaly, not elsewhere classified (principal); I70.90 Unspecified atherosclerosis; M47.815 Spondylosis without myelopathy or radiculopathy, thoracolumbar region
CPT/HCPCS: 74170; Q9967

== ENCOUNTER 2025-02-28 09:31 | Observation (INO) | payer OTHER, MEDICAID ==
[~2025-02-28] VITALS: Ht 152.4 cm; Wt 64.0 kg
[~2025-02-28 09:31] MED LIST changes: -ASPI-1012 PO; -IOHEXOL-350 75 ML VIAL IV ONE; -LISI20TA24 PO; -MACR100 PO; -METH4TAB3 PO; -NAPR-1194 PO; -NITR0.4T50 SL
--- NOTE | 2025-02-28 09:41 | ERN ---
General Chief Complaint: Weakness Stated Complaint: WEAKNESS Time Seen by MD: 09:34 Source: patient History of Present Illness Initial Comments Patient is a an 80-year-old female coming in complaining of generalized body weakness. Patient has been weak for 2-3 days. States he has pending chemotherapy for liver CA which was diagnosed couple of months ago. States that she has been feeling weak in the past and she was hospitalized before for the same reason. Allergies: Coded Allergies: No Known Drug Allergies (Unverified Allergy, Unknown, 03/03/16) Home Meds Reported Medications Losartan Potassium (Losartan Potassium) 100 Mg Tablet, 1 TAB PO DAILY 01/27/25 Past Medical History Past Medical History: Anxiety Medical History Other: VERTIGO Past Surgical History: Other Surgical History Other: LT SHOULDER SX Social History Social History: Negative, Lives with family ROS Dictation CONSTITUTIONAL: No chills, no fever, weakness, no diaphoresis, no malaise. HEAD/FACE: No signs of trauma. EENT: No eye pain, no blurred vision, no tearing, no double vision, no ear pain, no ear discharge, no nose pain, no nasal congestion, no throat pain, no throat swelling, no mouth pain. RESPIRATORY: No cough, no orthopnea, no SOB, no stridor, no wheezing. CARDIOVASCULAR: No chest pain, no edema, no palpitations, no syncope. GASTROINTESTINAL/ABDOMINAL: No abdominal pain, no constipation, no diarrhea, no nausea, no vomiting. GENITOURINARY: No abnormal discharge, no dysuria, no frequent urination, no hematuria. No complaints of pain in the genitals. MUSCULOSKELETAL: No back pain, no gout, no joint pain, no joint swelling, no muscle pain, no muscle stiffness, no neck pain. INTEGUMENTARY: No change in color, no change in hair/nails, no dryness, no lesion, no lumps, no rash. NEUROLOGICAL/PSYCH: No anxiety, not depressed, no emotional problem, no headache, no numbness, no pre-existing deficit, no history of seizures, no tremors, no weakness. HEMATOLOGIC/LYMPHATIC: Not anemic, no history of blood clots, no apparent bleeding, no bruising, glands not swollen. All Systems Negative, Except as Noted. Physical Exam Physical Exam Dictation VITAL SIGNS: Reviewed. GENERAL APPEARANCE: Alert, oriented x3, no acute distress, obese. HEAD AND FACE: Non-traumatic. EYES: PERRL, pink conjunctivas, eyelid no trauma, anterior chamber clear. EARS: Pinnas intact and no signs of trauma or erythema. Ear canals clear and no discharge. TMs no erythema. NOSE: No discharge, no bleeding. OROPHARYNX: Mouth normal, teeth no caries, tongue pink. Pharynx clear, no erythema. Tonsils no exudates, no abscesses noted. Mucous membrane moist. NECK: Supple, non-tender, no thyromegaly, no masses, no JVD, no bruits. BREAST: Deferred. CHEST: No tenderness, no crepitus, no paradoxical movement, no retractions. LUNGS: Clear, well-ventilated, symmetric, no rales, no wheezing, no rhonchi, no stridor, good breath sounds bilaterally. HEART: Regular rate, regular rhythm, no murmur, no gallops. VASCULAR: No peripheral edema. ABDOMEN: Soft, positive bowel sounds, nondistended, no guarding, nontender, no rebound, no masses no hepatomegaly, no splenomegaly, no Peña's sign, no hernias. RECTAL: Deferred. GENITAL: Deferred. NEUROLOGICAL: Normal speech, gross motor function intact, gross sensory function intact. MUSCULOSKELETAL: Neck nontender, full range of motion, back nontender, full range of motion. EXTREMITIES: Nontender, full range of motion. SKIN: Color pink, dry, no turgor, no rash, no lacerations, no abrasions, no contusions. LYMPHATICS: Deferred. Results Laboratory and Microbiology Lab and Micro Result Laboratory Tests Test 02/28/25 09:42 02/28/25 10:07 Urine Color YELLOW (YELLOW) Urine Appearance CLEAR (CLEAR) Urine pH 6.0 (5.0-8.0) Urine Specific [place] 1.013 (1.001-1.031) Urine Protein NEGATIVE mg/dL (NEGATIVE) Urine Glucose (UA) NEGATIVE mg/dL (NEGATIVE) Urine Ketones NEGATIVE mg/dL (NEGATIVE) Urine Occult Blood NEGATIVE (NEGATIVE) Urine Nitrate NEGATIVE (NEGATIVE) Urine Bilirubin NEGATIVE mg/dL (NEGATIVE) Urine Urobilinogen 0.2 mg/dL (0.2-1.0) Urine Leukocyte Esterase 75 Zakia/uL (NEGATIVE) H Urine RBC 2-5 /HPF (0-1) H Urine WBC 6-10 /HPF (0-1) H Urine Squamous Epithelial Cells RARE /HPF (0-2) Urine Non-Squamous Epithelial Cells 1 /HPF (0-2) Urine Bacteria None /HPF (None Seen) White Blood Count 4.6 K/uL (4.8-10.8) L Red Blood Count 5.68 MIL/uL (4.00-5.50) H Hemoglobin 13.7 g/dL (12.0-16.0) Hematocrit 43.7 % (36-48) Mean Corpuscular Volume 76.9 fL (79-99) L Mean Corpuscular Hemoglobin 24.1 pg (27.0-33.0) L Mean Corpuscular Hemoglobin Concent 31.4 g/dL (32.0-36.0) L Red Cell Distribution Width 22.3 % (11.0-15.5) H Platelet Count 328 K/uL (130-400) Mean Platelet Volume 9.6 fL (7.5-10.5) Immature Granulocyte % (Auto) 0.0 % (0-1) Neutrophils (%) (Auto) 67.7 % (40.0-77.0) Lymphocytes (%) (Auto) 17.1 % (21.0-51.0) L Monocytes (%) (Auto) 11.7 % (3.0-13.0) Eosinophils (%) (Auto) 2.8 % (0.0-8.0) Basophils (%) (Auto) 0.7 % (0.0-5.0) Neutrophils # (Auto) 3.1 K/uL (1.8-7.7) Lymphocytes # (Auto) 0.8 K/uL (1.0-4.8) L Monocytes # (Auto) 0.5 K/uL (0.1-1.0) Eosinophils # (Auto) 0.13 K/uL (0.00-0.70) Basophils # (Auto) 0.03 K/uL (0.00-0.20) Absolute Immature Granulocyte (auto 0.00 K/uL (0-1) Nucleated Red Blood Cells 0.0 % (0.0-0.19) Red Blood Cell Morphology See comments Sodium Level 139 mmol/L (136-145) Potassium Level 4.2 mmol/L (3.5-5.1) Chloride Level 104 mmol/L (101-111) Carbon Dioxide Level 26 mmol/L (21-32) Blood Urea Nitrogen 14 mg/dL (7-18) Creatinine 1.3 mg/dL (0.5-1.0) H Glomerular Filtration Rate Calc 42 mL/min (>90) Random Glucose 102 mg/dL (70-105) Total Calcium 9.5 mg/dL (8.5-10.1) Total Bilirubin 1.1 mg/dL (0.2-1.0) H Aspartate Amino Transf (AST/SGOT) 336 U/L (10-37) H Alanine Aminotransferase (ALT/SGPT) 51 U/L (12-78) Alkaline Phosphatase 199 U/L (50-136) H Total Creatine Kinase 35 U/L (21-232) Troponin I High Sensitivity 6 ng/L (4-50) Total Protein 7.9 g/dL (6.0-8.3) Albumin 3.5 g/dL (3.5-5.0) Lipase 35 U/L (16-77) Labs Reviewed?: Yes EKG/XRAY/US/CT/MRI EKG Comment 02/28/2025 time 9:49 a.m. Ventricular rate 66 Sinus rhythm HI [address] wave elevation or depression MDM MDM: Differential diagnosis: Generalized body weakness, dehydration, UTI Rationale: Tests considered and ordered secondary to shared decision making include: labs, ECG and radiology Previous outside records reviewed: Old ER visits. Risk of complication and/or morbidity or mortality of patient management: None Medications-Per medication reconciliation Need for hospitalization: Patient does meet criteria for hospitalization. Need for emergency major/minor surgery: No There are no social concerns with this patient. Prescription drug management Prescriptions will include symptomatic care Patient's prior external medical records from other ER visits were reviewed by me as indicated. Prior testing and results from previous visits were reviewed. Prior tests were taken into account with medical decision making and resource utilization, independent historian/historians were used to obtain complete medical history. I independently interpreted the test that were performed, results were reviewed by me and considered findings on radiology if ordered. Medical management and examination interpretation discussions were had by me with other qualified healthcare professionals as indicated for the patient's care. PATIENT WILL BE ADMITTED UNDER THE CARE OF HOSPITALIST GROUP FOR ONGOING MANAGEMENT OF DEHYDRATION, UTI, HISTORY OF LIVER CA. ED Course Orders Procedure Category Date Status Time Cbc With Differential LAB 02/28/25 Complete 09:34 Comprehensive LAB 02/28/25 Complete Metabolic Panel 09:34 Troponin I High LAB 02/28/25 Complete Sensitivity 09:34 Urinalysis Profile LAB 02/28/25 Complete 09:34 12 Lead Ekg Tracing- EKG 02/28/25 Logged Technical 09:34 Lactated Ringers PHA 02/28/25 Complete 1000ml (Lactated 10:00 Creatine Kinase, Total LAB 02/28/25 Complete 09:34 Chest 1vw RAD 02/28/25 Resulted 09:34 Lipase LAB 02/28/25 Complete 09:34 Culture Urine TRUMAN 02/28/25 In Process 10:09 Ceftriaxone 1g Vial PHA 02/28/25 Complete (Rocephine 1g Inj) 11:00 Current Medications Medications (Trade) Dose Ordered Sig/Jorgito Route PRN Reason Start Time Stop Time Status Last Admin Dose Admin Ceftriaxone Sodium (ROCEphine 1G INJ) 1 gm ONCE ONCE IVPB 02/28/25 11:00 02/28/25 11:01 DC 02/28/25 11:10 Lactated Ringer's 1,000 ml @ 0 mls/hr ONCE ONCE IV 02/28/25 10:00 02/28/25 10:01 DC 02/28/25 09:48 Vital Signs Date Time Temp Pulse Resp B/P (MAP) Pulse Ox O2 Delivery O2 Flow Rate FiO2 02/28/25 10:09 66 18 117/59 97 Room Air* 0 21 02/28/25 09:33 97.2 68 18 128/71 97 Room Air 0 DX & DISP Disposition: Inpatient Decision to Admit Time: 11:43 Departure Impression: Primary Impression: UTI (urinary tract infection) Additional Impressions: Dehydration, History of liver cancer Condition: Stable Referrals: JANEEN SONG (PCP) LEENA SAVAGE MD Feb 28, 2025 09:41
[2025-02-28] MEDS: LACTATED RINGERS 1000ML 1,000 ML IV ONE (09:48)
[2025-02-28 09:55] LABS: APPEARANCE,URINE CLEAR (CLEAR); GLUCOSE, URINE (UA) NEGATIVE (NEGATIVE); LEUKOCYTE ESTERASE ,URINE 75 Leu/uL (NEGATIVE); NITRATE,URINE NEGATIVE (NEGATIVE); OCCULT BLOOD,URINE NEGATIVE (NEGATIVE)
[2025-02-28 10:06] LABS: ADD UA MICROSCOPIC YES
[2025-02-28 10:13] LABS: IMMATURE GRANULOCYTE ABSOLUTE 0.00 K/uL (0-1); NUCLEATED RED BLOOD CELLS 0.0 % (0.0-0.19); PLATELET COUNT (AUTO) 328 K/uL (130-400); RED BLOOD CELL COUNT(AUTO) 5.68 MIL/uL (4.00-5.50); RED CELL DISTRIBUTION WIDTH 22.3 % (11.0-15.5); WHITE BLOOD COUNT (AUTO) 4.6 K/uL (4.8-10.8)
[2025-02-28 10:13] LABS: NON-SQUAMOUS EPITHELIAL CELL 1 /HPF (0-2); SQUAMOUS EPITHELIAL CELL,UR RARE /HPF (0-2)
[2025-02-28 10:27] LABS: CREATININE 1.3 mg/dL (0.5-1.0); GLOMERULAR FILTR. RATE CALC 42.0 mL/min (>90); GLUCOSE,RANDOM 102.0 mg/dL (70-105); SODIUM SERUM 139.0 mmol/L (136-145); UREA NITROGEN, BLOOD 14.0 mg/dL (7-18)
[2025-02-28 10:31] LABS: ASPARTATE AMINOTRANSFERASE 336.0 U/L (10-37); CREATINE KINASE, TOTAL 35.0 U/L (21-232); TOTAL PROTEIN, SERUM 7.9 g/dL (6.0-8.3)
--- NOTE | 2025-02-28 11:25 | HMCIMG ---
EXAM: CR Chest, 1 View. CLINICAL HISTORY: weakness COMPARISON: Radiograph dated January 27, 2025 FINDINGS: LUNGS: There is no mass, infiltrate, or acute pulmonary abnormality. PLEURAL SPACES: No pleural effusion or pneumothorax. MEDIASTINUM: The cardiomediastinal silhouette is within normal limits. BONES: No acute osseous abnormality. IMPRESSION: No acute cardiopulmonary pathology is evident. /[place]
--- NOTE | 2025-02-28 12:07 | HP ---
[facility] HISTORY AND PHYSICAL Date of Service: Feb 28, 2025 Time of Service: 12:07 HISTORY OF PRESENT ILLNESS: 80-year-old female with past medical history of liver cancer, hypertension, hyperlipidemia who presented to the hospital secondary to decreased p.o. intake, generalized weakness. Patient states around one month ago she was diagnosed with liver cancer. She was hospitalized in [facility] and was found to have mass to the right lobe of the liver. During hospitalization patient underwent liver biopsy by IR with pathology showing moderately differentiated hepatocellular carcinoma. The patient was going to follow up w [facility] oncologist in [place]. She has not been started on any chemotherapy yet. Patient states she has been eating very less at home and endorses loss of appetite. She has been drinking ensure. She denies any dysphagia, choking episodes at home. Denied any abdominal pain but complains of nausea and vomiting at home. She denied any fever, chills, changes in her bowel movement, dysuria. She states she has been constipated in the past. Denied any melena, hematochezia, hematemesis. She is able to ambulate at home and denies any falls. She endorses weight loss and states in the past she was weighing around 170 lb. Labs in the ED were notable for white count of 4.6, hemoglobin was 13.7, MCV was 76.9, platelet count was 328 K, sodium was 139, potassium was 4.2, creatinine is 1.3, total bili was 1.1, ALT was 336, alk-phos was 199, albumin was 3.5, troponin was negative x1 REVIEW OF SYSTEMS CONSTITUTIONAL: Denies fevers, chills, or night sweats. No unintentional weight loss reported. NEUROLOGICAL: Denies headache, amaurosis fugax, motor weakness, sensory deficit, vertigo/spinning sensation, gait abnormalities, or tremors. ENT: No hearing loss, otalgia, otorrhea, rhinitis, rhinorrhea, hoarseness, or sore throat. CARDIOVASCULAR: Denies any exertional angina, dyspnea on exertion, orthopnea, paroxysmal nocturnal dyspnea, palpitations, life-threatening arrhythmias, claudication. PULMONARY: Denies any shortness of breath, cough, phlegm/sputum, hemoptysis, pleuritic chest pain. GASTROINTESTINAL: Positive for nausea, vomiting, decreased appetite, constipation. Denied any melena, hematochezia, hematemesis GENITOURINARY: Denies frequency, urgency, nocturia, hematuria or incontinence (Storage/Irritative symptoms.) Low urinary stream, straining to void, urinary intermittency or hesitancy, splitting of the voiding stream, terminal dribbling. ENDOCRINOLOGIC: Denies polyuria, polydipsia, polyphagia or heat/cold intolerances. HEMATOLOGIC: Denies thrombophilia/previous clots, or coagulopathy/bleeding disorders. ONCOLOGIC: Denies personal history of malignancy. DERMATOLOGIC: Denies rashes or pruritus. PSYCHIATRIC: Denies any suicidal or homicidal ideation. Denies hallucinations. PAST MEDICAL HISTORY: Hypertension, hyperlipidemia, recently diagnosed liver cancer PAST SURGICAL HISTORY: History of left shoulder surgery PAST SOCIAL HISTORY: Denied any smoking, alcohol, drug use FAMILY HISTORY: Denied any pertinent family history Coded Allergies: No Known Drug Allergies (Unverified Allergy, Unknown, 03/03/16) PHYSICAL EXAM GENERAL APPEARANCE: The patient is awake, alert, and oriented, in no acute cardiopulmonary distress. NEUROLOGICAL: Cranial nerves II-XII grossly intact. Motor is 5/5 in bilateral upper and lower extremities proximal to distal. No sensory deficits. HEENT: Face is symmetric. Pupils are equal and reactive. Extraocular movements are intact. NECK: Supple. No JVD. No thyromegaly. No submental, submandibular, pre- /postauricular, occipital or supraclavicular lymphadenopathy. CHEST: Normal chest expansion. No Telemetry. LUNGS: Absence of any rales, rhonchi or any wheezing. CARDIOVASCULAR: Regular. S1 and S2 normal. No appreciable rubs, murmurs or gallops. ABDOMEN: Soft, mild tenderness to palpation in the right upper quadrant, and nondistended. There is no rebound, voluntary guarding, or rigidity. : Deferred. No Rizzo. EXTREMITIES: Non-edematous and not cyanotic. No clubbing. Good capillary refill. SKIN: No skin breakdown. Vital Sign (Last 24 Hours) 02/28/25 02/28/25 09:33 10:09 Temp 97.2 Pulse 66 Resp 18 B/P (MAP) 117/59 Pulse Ox 97 O2 Delivery Room Air* O2 Flow Rate 0 FiO2 21 LABS: Laboratory: Test 02/28/25 10:07 02/28/25 09:42 Range/Units White Blood Count 4.6 L 4.8-10.8 K/uL Red Blood Count 5.68 H 4.00-5.50 MIL/uL Hemoglobin 13.7 12.0-16.0 g/dL Hematocrit 43.7 36-48 % Mean Corpuscular Volume 76.9 L 79-99 fL Mean Corpuscular Hemoglobin 24.1 L 27.0-33.0 pg Mean Corpuscular Hemoglobin Concent 31.4 L 32.0-36.0 g/dL Red Cell Distribution Width 22.3 H 11.0-15.5 % Platelet Count 328 130-400 K/uL Mean Platelet Volume 9.6 7.5-10.5 fL Immature Granulocyte % (Auto) 0.0 0-1 % Neutrophils (%) (Auto) 67.7 40.0-77.0 % Lymphocytes (%) (Auto) 17.1 L 21.0-51.0 % Monocytes (%) (Auto) 11.7 3.0-13.0 % Eosinophils (%) (Auto) 2.8 0.0-8.0 % Basophils (%) (Auto) 0.7 0.0-5.0 % Neutrophils # (Auto) 3.1 1.8-7.7 K/uL Lymphocytes # (Auto) 0.8 L 1.0-4.8 K/uL Monocytes # (Auto) 0.5 0.1-1.0 K/uL Eosinophils # (Auto) 0.13 0.00-0.70 K/uL Basophils # (Auto) 0.03 0.00-0.20 K/uL Absolute Immature Granulocyte (auto 0.00 0-1 K/uL Nucleated Red Blood Cells 0.0 0.0-0.19 % Red Blood Cell Morphology See comments Sodium Level 139 136-145 mmol/L Potassium Level 4.2 3.5-5.1 mmol/L Chloride Level 104 101-111 mmol/L Carbon Dioxide Level 26 21-32 mmol/L Blood Urea Nitrogen 14 7-18 mg/dL Creatinine 1.3 H 0.5-1.0 mg/dL Glomerular Filtration Rate Calc 42 >90 mL/min Random Glucose 102 70-105 mg/dL Total Calcium 9.5 8.5-10.1 mg/dL Total Bilirubin 1.1 H 0.2-1.0 mg/dL Aspartate Amino Transf (AST/SGOT) 336 H 10-37 U/L Alanine Aminotransferase (ALT/SGPT) 51 12-78 U/L Alkaline Phosphatase 199 H 50-136 U/L Total Creatine Kinase 35 21-232 U/L Troponin I High Sensitivity 6 4-50 ng/L Total Protein 7.9 6.0-8.3 g/dL Albumin 3.5 3.5-5.0 g/dL Lipase 35 16-77 U/L Urine Color YELLOW YELLOW Urine Appearance CLEAR CLEAR Urine pH 6.0 5.0-8.0 Urine Specific [place] 1.013 1.001-1.031 Urine Protein NEGATIVE NEGATIVE mg/dL Urine Glucose (UA) NEGATIVE NEGATIVE mg/dL Urine Ketones NEGATIVE NEGATIVE mg/dL Urine Occult Blood NEGATIVE NEGATIVE Urine Nitrate NEGATIVE NEGATIVE Urine Bilirubin NEGATIVE NEGATIVE mg/dL Urine Urobilinogen 0.2 0.2-1.0 mg/dL Urine Leukocyte Esterase 75 H NEGATIVE Zakia/uL Urine RBC 2-5 H 0-1 /HPF Urine WBC 6-10 H 0-1 /HPF Urine Squamous Epithelial Cells RARE 0-2 /HPF Urine Non-Squamous Epithelial Cells 1 0-2 /HPF Urine Bacteria None None Seen /HPF DIAGNOSTICS / RADIOLOGY: No imaging performed. The patient's CT abdomen pelvis from 01/27/2025 showed right inferior hepatic mass measuring 8.6 x 7.3 cm. ASSESSMENT: UTI POA Dehydration Failure to thrive likely secondary to underlying malignancy Recently diagnosed liver cancer POA Elevated LFTs likely in setting of liver malignancy Acute kidney injury likely prerenal Hypertension Hyperlipidemia Unintentional weight loss secondary to underlying malignancy PLAN: - patient to be admitted to medical-surgical unit with telemetry under observation -in reference to UTI. The patient will be started on Rocephin. Follow up on urine culture. Start patient on NS for gentle hydration -in reference to nausea and vomiting with generalized weakness. We will obtain a CT abdomen pelvis and CT head. We will request Oncology consultation. The patient will need to follow up with Oncology as outpatient -obtain PT evaluation -patient to be started on GI soft diet -monitor creatinine for now. Continue patient on gentle hydration. Obtain a urine sodium and urine creatinine -check TSH, A1c -further orders per hospitalization course. Advanced Care Planning Which of the following were discussed: Hospice care: Yes __ No _x_ Therapeutic options: Yes __ No __ Advance directives: Yes __ No __ Other discussions: Plan of care discussed with patient at bedside Discussed with who?: patient (Patient, family or surrogates) Voluntary nature of this service was explained to the patient? Yes _x_ No __ Amount of time spent: 25 minutes BETY Gamboa MD, MD Feb 28, 2025 12:07
[2025-02-28] MEDS: 0.9%NACL 1000ML 1,000 ML IV SCH (12:30)
--- NOTE | 2025-02-28 12:52 | CONS ---
CONSULT NOTE: 80-year-old female with past medical history of liver cancer, hypertension, hyperlipidemia who presented to the hospital secondary to decreased p.o. intake, generalized weakness. Patient states around one month ago she was diagnosed with liver cancer. She was hospitalized in [facility] and was found to have mass to the right lobe of the liver. During hospitalization patient underwent liver biopsy by IR with pathology showing moderately differentiated hepatocellular carcinoma. The patient was going to follow up with oncologist in [place]. She has not been started on any chemotherapy yet. Patient states she has been eating very less at home and endorses loss of appetite. She has been drinking ensure. She denies any dysphagia, choking episodes at home. Denied any abdominal pain but complains of nausea and vomiting at home. She denied any fever, chills, changes in her bowel movement, dysuria. She states she has been constipated in the past. Denied any melena, hematochezia, hematemesis. She is able to ambulate at home and denies any falls. She endorses weight loss and states in the past she was weighing around 170 lb. Labs in the ED were notable for white count of 4.6, hemoglobin was 13.7, MCV was 76.9, platelet count was 328 K, sodium was 139, potassium was 4.2, creatinine is 1.3, total bili was 1.1, ALT was 336, alk-phos was 199, albumin was 3.5, troponin was negative x1 REVIEW OF SYSTEMS CONSTITUTIONAL: Denies fevers, chills, or night sweats. No unintentional weight loss reported. NEUROLOGICAL: Denies headache, amaurosis fugax, motor weakness, sensory deficit, vertigo/spinning sensation, gait abnormalities, or tremors. ENT: No hearing loss, otalgia, otorrhea, rhinitis, rhinorrhea, hoarseness, or sore throat. CARDIOVASCULAR: Denies any exertional angina, dyspnea on exertion, orthopnea, paroxysmal nocturnal dyspnea, palpitations, life-threatening arrhythmias, claudication. PULMONARY: Denies any shortness of breath, cough, phlegm/sputum, hemoptysis, pleuritic chest pain. GASTROINTESTINAL: Positive for nausea, vomiting, decreased appetite, constipation. Denied any melena, hematochezia, hematemesis GENITOURINARY: Denies frequency, urgency, nocturia, hematuria or incontinence (Storage/Irritative symptoms.) Low urinary stream, straining to void, urinary intermittency or hesitancy, splitting of the voiding stream, terminal dribbling. ENDOCRINOLOGIC: Denies polyuria, polydipsia, polyphagia or heat/cold intolerances. HEMATOLOGIC: Denies thrombophilia/previous clots, or coagulopathy/bleeding disorders. ONCOLOGIC: Denies personal history of malignancy. DERMATOLOGIC: Denies rashes or pruritus. PSYCHIATRIC: Denies any suicidal or homicidal ideation. Denies hallucinations. PAST MEDICAL HISTORY: Hypertension, hyperlipidemia, recently diagnosed liver cancer PAST SURGICAL HISTORY: History of left shoulder surgery PAST SOCIAL HISTORY: Denied any smoking, alcohol, drug use FAMILY HISTORY: Denied any pertinent family history Coded Allergies: No Known Drug Allergies (Unverified Allergy, Unknown, 03/03/16) PHYSICAL EXAM GENERAL APPEARANCE: The patient is awake, alert, and oriented, in no acute cardiopulmonary distress. NEUROLOGICAL: Cranial nerves II-XII grossly intact. Motor is 5/5 in bilateral upper and lower extremities proximal to distal. No sensory deficits. HEENT: Face is symmetric. Pupils are equal and reactive. Extraocular movements are intact. NECK: Supple. No JVD. No thyromegaly. No submental, submandibular, pre- /postauricular, occipital or supraclavicular lymphadenopathy. CHEST: Normal chest expansion. No Telemetry. LUNGS: Absence of any rales, rhonchi or any wheezing. CARDIOVASCULAR: Regular. S1 and S2 normal. No appreciable rubs, murmurs or gallops. ABDOMEN: Soft, mild tenderness to palpation in the right upper quadrant, and nondistended. There is no rebound, voluntary guarding, or rigidity. : Deferred. No Rizzo. EXTREMITIES: Non-edematous and not cyanotic. No clubbing. Good capillary refill. SKIN: No skin breakdown. Assessment 1. New diagnosis of liver cancer CT scan of the abdomen showing 8.8 cm mass to the liver with the tumor may be invading to the jack hepatis lymph node 2. UTI 3. Hypertension 4. Hyperlipidemia 5. Failure to thrive Plan 1. Patient with a new diagnosis of hepatic to cell carcinoma with the patient is not surgical candidate. This patient is candidate for palliative chemotherapy treatment. 2. This patient with failure to thrive. The patient could be candidate for comfort care 3. Patient with UTI. Continue antibiotic treatment 4. Patient with acute on chronic liver failure. Will follow-up with this patient closely LAB RESULTS 02/28/25 10:07: White Blood Count 4.6L, Red Blood Count 5.68H, Hemoglobin 13.7, Hematocrit 43.7, Mean Corpuscular Volume 76.9L, Mean Corpuscular Hemoglobin 24.1L, Mean Corpuscular Hemoglobin Concent 31.4L, Red Cell Distribution Width 22.3H, Platelet Count 328, Mean Platelet Volume 9.6, Immature Granulocyte % (Auto) 0.0, Neutrophils (%) (Auto) 67.7, Lymphocytes (%) (Auto) 17.1L, Monocytes (%) (Auto) 11.7, Eosinophils (%) (Auto) 2.8, Basophils (%) (Auto) 0.7, Neutrophils # (Auto) 3.1, Lymphocytes # (Auto) 0.8L, Monocytes # (Auto) 0.5, Eosinophils # (Auto) 0.13, Basophils # (Auto) 0.03, Absolute Immature Granulocyte (auto 0.00, Nucleated Red Blood Cells 0.0, Red Blood Cell Morphology See comments, Sodium Level 139, Potassium Level 4.2, Chloride Level 104, Carbon Dioxide Level 26, Blood Urea Nitrogen 14, Creatinine 1.3H, Glomerular Filtration Rate Calc 42, Random Glucose 102, Hemoglobin A1c 5.2, Estimated Average Glucose (eAG) 103, Total Calcium 9.5, Total Bilirubin 1.1H, Aspartate Amino Transf (AST/SGOT) 336H, Alanine Aminotransferase (ALT/SGPT) 51, Alkaline Phosphatase 199H, Total Creatine Kinase 35, Troponin I High Sensitivity 6, Total Protein 7.9, Albumin 3.5, Lipase 35, Procalcitonin 14.95H, Thyroid Stimulating Hormone (TSH) 2.28 02/28/25 09:42: Urine Color YELLOW, Urine Appearance CLEAR, Urine pH 6.0, Urine Specific [place] 1.013, Urine Protein NEGATIVE, Urine Glucose (UA) NEGATIVE, Urine Ketones NEGATIVE, Urine Occult Blood NEGATIVE, Urine Nitrate NEGATIVE, Urine Bilirubin NEGATIVE, Urine Urobilinogen 0.2, Urine Leukocyte Esterase 75H, Urine RBC 2-5H, Urine WBC 6-10H, Urine Squamous Epithelial Cells RARE, Urine Non-Squamous Epithelial Cells 1, Urine Bacteria None Laboratory Tests Test 02/28/25 09:42 7/2/25 10:07 Urine Color YELLOW (YELLOW) Urine Appearance CLEAR (CLEAR) Urine pH 6.0 (5.0-8.0) Urine Specific [place] 1.013 (1.001-1.031) Urine Protein NEGATIVE mg/dL (NEGATIVE) Urine Glucose (UA) NEGATIVE mg/dL (NEGATIVE) Urine Ketones NEGATIVE mg/dL (NEGATIVE) Urine Occult Blood NEGATIVE (NEGATIVE) Urine Nitrate NEGATIVE (NEGATIVE) Urine Bilirubin NEGATIVE mg/dL (NEGATIVE) Urine Urobilinogen 0.2 mg/dL (0.2-1.0) Urine Leukocyte Esterase 75 [place]/uL (NEGATIVE) H Urine RBC 2-5 /HPF (0-1) H Urine WBC 6-10 /HPF (0-1) H Urine Squamous Epithelial Cells RARE /HPF (0-2) Urine Non-Squamous Epithelial Cells 1 /HPF (0-2) Urine Bacteria None /HPF (None Seen) White Blood Count 4.6 K/uL (4.8-10.8) L Red Blood Count 5.68 MIL/uL (4.00-5.50) H Hemoglobin 13.7 g/dL (12.0-16.0) Hematocrit 43.7 % (36-48) Mean Corpuscular Volume 76.9 fL (79-99) L Mean Corpuscular Hemoglobin 24.1 pg (27.0-33.0) L Mean Corpuscular Hemoglobin Concent 31.4 g/dL (32.0-36.0) L Red Cell Distribution Width 22.3 % (11.0-15.5) H Platelet Count 328 K/uL (130-400) Mean Platelet Volume 9.6 fL (7.5-10.5) Immature Granulocyte % (Auto) 0.0 % (0-1) Neutrophils (%) (Auto) 67.7 % (40.0-77.0) Lymphocytes (%) (Auto) 17.1 % (21.0-51.0) L Monocytes (%) (Auto) 11.7 % (3.0-13.0) Eosinophils (%) (Auto) 2.8 % (0.0-8.0) Basophils (%) (Auto) 0.7 % (0.0-5.0) Neutrophils # (Auto) 3.1 K/uL (1.8-7.7) Lymphocytes # (Auto) 0.8 K/uL (1.0-4.8) L Monocytes # (Auto) 0.5 K/uL (0.1-1.0) Eosinophils # (Auto) 0.13 K/uL (0.00-0.70) Basophils # (Auto) 0.03 K/uL (0.00-0.20) Absolute Immature Granulocyte (auto 0.00 K/uL (0-1) Nucleated Red Blood Cells 0.0 % (0.0-0.19) Red Blood Cell Morphology See comments Sodium Level 139 mmol/L (136-145) Potassium Level 4.2 mmol/L (3.5-5.1) Chloride Level 104 mmol/L (101-111) Carbon Dioxide Level 26 mmol/L (21-32) Blood Urea Nitrogen 14 mg/dL (7-18) Creatinine 1.3 mg/dL (0.5-1.0) H Glomerular Filtration Rate Calc 42 mL/min (>90) Random Glucose 102 mg/dL (70-105) Hemoglobin A1c 5.2 % (4.0-6.0) Estimated Average Glucose (eAG) 103 mg/dL (70-126) Total Calcium 9.5 mg/dL (8.5-10.1) Total Bilirubin 1.1 mg/dL (0.2-1.0) H Aspartate Amino Transf (AST/SGOT) 336 U/L (10-37) H Alanine Aminotransferase (ALT/SGPT) 51 U/L (12-78) Alkaline Phosphatase 199 U/L (50-136) H Total Creatine Kinase 35 U/L (21-232) Troponin I High Sensitivity 6 ng/L (4-50) Total Protein 7.9 g/dL (6.0-8.3) Albumin 3.5 g/dL (3.5-5.0) Lipase 35 U/L (16-77) Procalcitonin 14.95 ng/mL (0.05-0.5) H Thyroid Stimulating Hormone (TSH) 2.28 uIU/mL (0.36-3.74) FORREST GILBERT MD Feb 28, 2025 12:52
--- NOTE | 2025-02-28 12:54 | EKG ---
[facility] Test Date: 2025-02-28 Test Time: 09:49:28 Pat Name: PARISH LADD Department: EDHIP Room: ED 04 Gender: F Cell Tuber Machine: [id number] Requested By: LEENA SAVAGE Order Number: [id number] Reading MD: Alec Johnson Measurements Intervals [place] Rate: 66 P: 8 WY: 161 QRS: -43 QRSD: 80 T: 6 QT: 426 QTc: 447 Interpretive Statements Sinus rhythm Poor R wave progression Electronically Signed On 02-28-2025 15:36:19 CDT by Alec Johnson Please click the below link to view image of tracing.
--- NOTE | 2025-02-28 13:54 | HMCIMG ---
EXAM: CT Abdomen and Pelvis Without IV contrast CLINICAL HISTORY: Loss of apertie, liver cancer TECHNIQUE: Axial computed tomography images of the abdomen and pelvis without intravenous contrast. CONTRAST: No IV contrast. COMPARISON: Study dated 01/27. FINDINGS: LUNG BASES: The lung bases appear clear. No pleural effusions are seen. LIVER: A well-defined lobulated hypodense lesion is noted involving the right lobe of the liver, measuring 11.5 x 10.2 x 11.2 cm consistent with hepatoma. Trace subcapsular fluid within the right hepatic lobe. GALLBLADDER AND BILE DUCTS: The gallbladder appears within normal limits. No radiopaque gallstones are seen. No biliary ductal dilatation is evident. PANCREAS: Unremarkable. SPLEEN: Unremarkable. ADRENAL GLANDS: Unremarkable. KIDNEYS, URETERS, AND BLADDER: The kidneys appear within normal limits. There is no hydronephrosis or hydroureter. No urinary calculi are seen. STOMACH AND BOWEL: Bowel loops are normal in caliber without evidence of obstruction, ileus, or bowel wall thickening. Colonic diverticulosis without evidence for diverticulitis. APPENDIX: No evidence of acute appendicitis on CT examination. PERITONEUM: No free fluid. No free air. Pelvic phlebolith. LYMPH NODES: No lymphadenopathy is evident. REPRODUCTIVE: Unremarkable as visualized. VASCULATURE: No evidence of abdominal aortic aneurysm. BONES: Degenerative changes are noted along the visualized spine. No aggressive appearing osseous lesion. No acute osseous pathology evident. IMPRESSION: 1. Large right hepatic lobe mass measuring 11.5 x 10.2 x 11.2 cm, consistent with hepatoma, with trace subcapsular fluid. 2. No other acute findings. /[place]
--- NOTE | 2025-02-28 13:56 | HMCIMG ---
EXAM: CT Head Without IV contrast. CLINICAL HISTORY: generalized weakness , liver cancer TECHNIQUE: Axial computed tomography images of the head/brain without intravenous contrast. COMPARISON: Study dated space 05/16/15. FINDINGS: BRAIN: There is diffuse cerebral atrophy, evidenced by prominence of the cortical sulci and ventricular system, compatible with age-related changes.No evidence of acute hemorrhage. No mass lesion. No CT evidence for acute territorial infarct. No midline shift or extra-axial collections.VENTRICLES: No hydrocephalus. ORBITS: The orbits are unremarkable. SINUSES AND MASTOIDS: The paranasal sinuses and mastoid air cells are clear. BONES: No fracture. SOFT TISSUES: Unremarkable. IMPRESSION: 1. No acute intracranial findings. /[place]
--- NOTE | 2025-02-28 16:07 | NUR ---
DCP: HOME Pt currently lives alone in her home. Pt uses a cane and a walker at home. Pt has a provider Erin Ramirez [phone] who goes to her home for 4 hrs a day and she assist with completing all ADLs, home management, and meals. PCP is Dr. Tomi Hassan and uses [facility] for any RX needs. At [place] pt will want to go back home and provider can assist with transportation. Addendum: 02/28/25 at 1614 by SHARMIN LOPEZ SS Amended: Links added.
[2025-02-28] MEDS: FAMOTIDINE 20MG VIAL IV SCH (21:02)
[2025-02-28 22:40] VITALS: BP 151/80; PULSE 65; RESP 18; TEMP 97.7; O2SAT 97
[2025-02-28 23:30] VITALS: BP 148/72; PULSE 68; RESP 18; TEMP 98.4
[2025-03-01 04:00] VITALS: BP 163/79; PULSE 69; RESP 18; TEMP 98.1
[2025-03-01 06:42] LABS: IMMATURE GRANULOCYTE ABSOLUTE 0.00 K/uL (0-1); NUCLEATED RED BLOOD CELLS 0.0 % (0.0-0.19); PLATELET COUNT (AUTO) 276 K/uL (130-400); RED BLOOD CELL COUNT(AUTO) 5.08 MIL/uL (4.00-5.50); RED CELL DISTRIBUTION WIDTH 21.9 % (11.0-15.5); WHITE BLOOD COUNT (AUTO) 4.0 K/uL (4.8-10.8)
[2025-03-01 06:59] LABS: CREATININE 1.2 mg/dL (0.5-1.0); GLOMERULAR FILTR. RATE CALC 46.0 mL/min (>90); GLUCOSE,RANDOM 82.0 mg/dL (70-105); SODIUM SERUM 141.0 mmol/L (136-145); UREA NITROGEN, BLOOD 11.0 mg/dL (7-18)
[2025-03-01 07:42] VITALS: BP 155/74; PULSE 63; RESP 17; TEMP 97.9
[2025-03-01] MEDS ORDERED: ONDA-104 PO (11:21)
[2025-03-01] MEDS ORDERED: AMOX-426 PO (11:21)
--- NOTE | 2025-03-01 11:21 | DS ---
Discharge Summary Hospital Course Summary: The patient is an 80-year-old female with a recent diagnosis of liver cancer (approximately one month ago), along with a medical history of hypertension and hyperlipidemia, who presented to [facility] on 02/28/2025 with complaints of generalized weakness and poor oral intake for the past month. She reported an unintentional weight loss from 170 lbs to 143 lbs over this period. A CT scan of the abdomen and pelvis revealed a large hepatic mass in the right lobe, measuring 11.5 cm, consistent with hepatocellular carcinoma, along with trace subcapsular fluid. Laboratory results revealed a white blood cell count of 4.6, red blood cell count of 5.6, hemoglobin of 13, procalcitonin elevated at 14.95 (likely related to HCC), and creatinine at 1.3 (likely prerenal secondary to dehydration). Liver function tests showed total bilirubin of 1.1, markedly elevated AST at 336, alkaline phosphatase at 199, and albumin at 3.5. Urinalysis was notable for leukocyte esterase at 75, suggestive of a possible urinary tract infection. She was initiated on intravenous fluids (0.9% NaCl) and empiric antibiotic therapy with Rocephin. The patient was subsequently admitted for further evaluation and management. The patient was evaluated by Dr. Raines, the oncologist, who determined that she is not a surgical candidate but may be eligible for palliative chemotherapy. Transitioning to comfort care was also discussed as a potential option. The patient shared that she already has a scheduled appointment with Dr. Clarke on March 14. According to her, Dr. Clarke previously mentioned the presence of two liver nodules and indicated that surgical intervention or chemotherapy might be considered based on further evaluation. She is interested in pursuing the options that Dr. Clarke recommended. The patient also reported a family history of liver cancer. She was informed that, based on current evaluation, there is no evidence of metastatic disease. A nutrition consult was completed, and the recommendations were reviewed with the patient. She reported having Ensure at home but noted a poor appetite and reluctance to consume much. Her symptoms are likely attributable to the underlying hepatocellular carcinoma. After receiving IV fluids during her hospitalization, her nausea improved significantly, and she reported feeling much better overall. She currently lives alone but has home health providers scheduled to begin assisting her in the coming days. As she is now medically stable, she will be discharged with prescriptions for Zofran for nausea and Augmentin for treatment of a mild urinary tract infection. She will continue outpatient follow-up with her oncologist. During her hospital stay, nursing staff assisted with t ranslation to ensure effective communication. Procedure(s): [facility] [address] [place] [address] [id number] IMAGING REPORT Signed PATIENT: PARISH LADD MR#: [id number] : 1945 SEX: F AGE: 80 LOCATION: [facility] ORDER STATUS: REG ER REPORT#: [id number] SERVICE 0934 REASON: weakness ORDERING PHYSICIAN: LEENA SAVAGE MD PROCEDURE: CXR1VW - CHEST 1VW EXAM: CR Chest, 1 View. CLINICAL HISTORY: weakness COMPARISON: Radiograph dated January 27, 2025 FINDINGS: LUNGS: There is no mass, infiltrate, or acute pulmonary abnormality. PLEURAL SPACES: No pleural effusion or pneumothorax. MEDIASTINUM: The cardiomediastinal silhouette is within normal limits. BONES: No acute osseous abnormality. IMPRESSION: No acute cardiopulmonary pathology is evident. /[place] DICTATED BY: DEVON MORENO Jr., MD DATE: 02/28/251223 ELECTRONICALLY SIGNED BY: DEVON MORENO Jr., MD DATE: 02/28/25 1220 [place] [address] [id number] IMAGING REPORT Signed PATIENT: PARISH LADD MR#: [id number] : 1945 SEX: F AGE: 80 [facility] STATUS: ADM IN REPORT#: [id number] SERVICE 1207 REASON: Loss of apertie, liver cancer ORDERING PHYSICIAN: BETY MCCLAIN MD PROCEDURE: ABD PEL WO - CT ABDOMEN/PELVIS W/O CONTRAST EXAM: CT Abdomen and Pelvis Without IV contrast CLINICAL HISTORY: Loss of apertie, liver cancer TECHNIQUE: Axial computed tomography images of the abdomen and pelvis without intravenous contrast. CONTRAST: No IV contrast. COMPARISON: Study dated 01/27. FINDINGS: LUNG BASES: The lung bases appear clear. No pleural effusions are seen. LIVER: A well-defined lobulated hypodense lesion is noted involving the right lobe of the liver, measuring 11.5 x 10.2 x 11.2 cm consistent with hepatoma. Trace subcapsular fluid within the right hepatic lobe. GALLBLADDER AND BILE DUCTS: The gallbladder appears within normal limits. No radiopaque gallstones are seen. No biliary ductal dilatation is evident. PANCREAS: Unremarkable. SPLEEN: Unremarkable. ADRENAL GLANDS: Unremarkable. KIDNEYS, URETERS, AND BLADDER: The kidneys appear within normal limits. There is no hydronephrosis or hydroureter. No urinary calculi are seen. STOMACH AND BOWEL: Bowel loops are normal in caliber without evidence of obstruction, ileus, or bowel wall thickening. Colonic diverticulosis without evidence for diverticulitis. APPENDIX: No evidence of acute appendicitis on CT examination. PERITONEUM: No free fluid. No free air. Pelvic phlebolith. LYMPH NODES: No lymphadenopathy is evident. REPRODUCTIVE: Unremarkable as visualized. VASCULATURE: No evidence of abdominal aortic aneurysm. BONES: Degenerative changes are noted along the visualized spine. No aggressive appearing osseous lesion. No acute osseous pathology evident. IMPRESSION: 1. Large right hepatic lobe mass measuring 11.5 x 10.2 x 11.2 cm, consistent with hepatoma, with trace subcapsular fluid. 2. No other acute findings. /[place] DICTATED BY: DEVON MORENO Jr., MD DATE: 02/28/251452 ELECTRONICALLY SIGNED BY: DEVON MORENO Jr., MD DATE: 02/28/251452 [place] [address] [address] IMAGING REPORT Signed PATIENT: PARISH LADD MR#: [id number] : 1945 SEX: F AGE: 80 LOCATION: [facility] ORDER 1213 STATUS: ADM IN [facility] REPORT#: [id number] SERVICE 1207 REASON: generalized weakness , liver cancer ORDERING PHYSICIAN: BETY MCCLAIN MD PROCEDURE: HEAD WO - CT HEAD/BRAIN W/O CONTRAST EXAM: CT Head Without IV contrast. CLINICAL HISTORY: generalized weakness , liver cancer TECHNIQUE: Axial computed tomography images of the head/brain without intravenous contrast. COMPARISON: Study dated space 05/16/15. FINDINGS: BRAIN: There is diffuse cerebral atrophy, evidenced by prominence of the cortical sulci and ventricular system, compatible with age-related changes.No evidence of acute hemorrhage. No mass lesion. No CT evidence for acute territorial infarct. No midline shift or extra-axial collections.VENTRICLES: No hydrocephalus. ORBITS: The orbits are unremarkable. SINUSES AND MASTOIDS: The paranasal sinuses and mastoid air cells are clear. BONES: No fracture. SOFT TISSUES: Unremarkable. IMPRESSION: 1. No acute intracranial findings. /[place] DICTATED BY: DEVON MORENO Jr., MD DATE: 02/28/251454 ELECTRONICALLY SIGNED BY: DEVON MORENO Jr., MD DATE: 02/28/251454 RUN DATE: 03/01/25 [facility] [address] 1 RUN TIME: [id number] [place] [address] Department of Laboratories CLIA # [id number] Real Property Appraiser: Shan Vivar DO Specimen Report PATIENT: PARISH LADD ACCT: [id number] LOC: [facility] U: [id number] AGE/SX: 80/F ROOM: [facility] RE02/28/[address]: BETY MCCLAIN MD : 1945 BED: 1 DIS: STATUS: ADM [place] TLOC: SPEC: [id number] RENALDO: 02/28/25 STATUS: RES REQ: [id number] RECD: 02/28/25-[address] [facility] [address]: LEENA SAVAGE MD SOURCE: URINE CC ENTR: 02/28/[address]: JANEEN SONG [facility]: ORDERED: URINE CULTURE Procedure Result Ladi Date-Time URINE CULTURE Preliminary 03/01/25-644 REPORT URINE NO GROWTH 18-24 HRS Assessment/Plan: ASSESSMENT: UTI, urine cultures negative POA Dehydration Failure to thrive likely secondary to underlying malignancy Recently diagnosed liver cancer POA Elevated LFTs likely in setting of liver malignancy Acute kidney injury likely prerenal, improving Hypertension Hyperlipidemia Unintentional weight loss secondary to underlying malignancy Admission date: 02/28/2025 Discharge date 03/01/2025 Activity: As tolerated Disposition: Home Home medications: Continued Discharge medications: Start taking amoxicillin-clavulanate 500-125 mg b.i.d. for 5 days for the urinary tract infection. Start taking ondansetron 4 mg q.4 for7 days as needed for nausea. Follow up appointment: The patient has a scheduled follow up appointment with Dr. Clarke on March 14 for the management of hepatocellular carcinoma. Follow up with the primary care provider within 7 days of the discharge. We reinforced the importance of medication compliance and follow up appointments with the patient. Discharge Instructions: Follow recommendations from the shoe dresser. Drink Ensure or other nutritional supplements 12 times daily if tolerated. Try to eat small, frequent meals throughout the day. Stay well-hydrated with water, broth, or electrolyte drinks. Activity as tolerated. Avoid strenuous exertion. Rest as needed and avoid falls. When to Seek Immediate Medical Attention: Go to the nearest emergency department or call 911 if you experience: Severe or worsening abdominal pain Vomiting that prevents keeping down fluids or medications New confusion, weakness, or inability to get out of bed Fever >100.4F Home Medications: Active Scripts Amoxicillin/Potassium Clav (Augmentin 500-125 Tablet) 500 Mg-125 Mg Tablet, 1 TAB PO BID for 5 Days, #10 TAB 0 Refills Prov:FRITZ PEDROZA MD 03/01/25 Ondansetron HCl (Ondansetron HCl) 4 Mg Tablet, 1 TAB PO Q4HPRN PRN for nausea/vomiting for 7 Days, #42 TAB 0 Refills Prov:FRITZ PEDROZA MD 03/01/25 Reported Medications Losartan Potassium (Losartan Potassium) 100 Mg Tablet, 1 TAB PO DAILY 01/27/25 New Medications: Amoxicillin/Potassium Clav (Augmentin 500-125 Tablet) 500 Mg-125 Mg Tablet 1 TAB PO BID for 5 Days, #10 TAB 0 Refills Ondansetron HCl (Ondansetron HCl) 4 Mg Tablet 1 TAB PO Q4HPRN PRN for nausea/vomiting for 7 Days, #42 TAB 0 Refills Continued Medications: Losartan Potassium (Losartan Potassium) 100 Mg Tablet 1 TAB PO DAILY Time spent arranging discharge: 31-60 minutes ATTESTATION BY PHYSICIAN I have seen and examined the patient. I reviewed the documentation, medical decision making, and treatment plan as noted by the resident provider above. I agree with the findings and plan of care. Keenan Brown MD, MANALI MD Mar 01, 2025 11:21
[2025-03-01 11:36] VITALS: BP 133/68; PULSE 69; RESP 17; TEMP 98.4
--- NOTE | 2025-03-01 12:31 | PN ---
80-year-old female with past medical history of liver cancer, hypertension, hyperlipidemia who presented to the hospital secondary to decreased p.o. intake, generalized weakness. Patient states around one month ago she was diagnosed with liver cancer. She was hospitalized in [facility] and was found to have mass to the right lobe of the liver. During hospitalization patient underwent liver biopsy by IR with pathology showing moderately differentiated hepatocellular carcinoma. The patient was going to follow up with oncologist in [place]. She has not been started on any chemotherapy yet. Patient states she has been eating very less at home and endorses loss of appetite. She has been drinking ensure. She denies any dysphagia, choking episodes at home. Denied any abdominal pain but complains of nausea and vomiting at home. She denied any fever, chills, changes in her bowel movement, dysuria. She states she has been constipated in the past. Denied any melena, hematochezia, hematemesis. She is able to ambulate at home and denies any falls. She endorses weight loss and states in the past she was weighing around 170 lb. Patient was admitted to the hospital with UTI with the patient was started on antibiotic treatment. PHYSICAL EXAM GENERAL APPEARANCE: The patient is awake, alert, and oriented, in no acute cardiopulmonary distress. NEUROLOGICAL: Cranial nerves II-XII grossly intact. Motor is 5/5 in bilateral upper and lower extremities proximal to distal. No sensory deficits. HEENT: Face is symmetric. Pupils are equal and reactive. Extraocular movements are intact. NECK: Supple. No JVD. No thyromegaly. No submental, submandibular, pre- /postauricular, occipital or supraclavicular lymphadenopathy. CHEST: Normal chest expansion. No Telemetry. LUNGS: Absence of any rales, rhonchi or any wheezing. CARDIOVASCULAR: Regular. S1 and S2 normal. No appreciable rubs, murmurs or gallops. ABDOMEN: Soft, mild tenderness to palpation in the right upper quadrant, and nondistended. There is no rebound, voluntary guarding, or rigidity. : Deferred. No Rizzo. EXTREMITIES: Non-edematous and not cyanotic. No clubbing. Good capillary refill. SKIN: No skin breakdown. Assessment 1. New diagnosis of liver cancer CT scan of the abdomen showing 8.8 cm mass to the liver with the tumor may be invading to the jack hepatis lymph node 2. UTI. Patient was started on antibiotic treatment 3. Hypertension 4. Hyperlipidemia 5. Failure to thrive Plan 1. Patient with a new diagnosis of hepatocell carcinoma with the patient is not surgical candidate. This patient is candidate for palliative chemotherapy treatment. 2. This patient with failure to thrive. The patient could be candidate for comfort care 3. Patient with UTI. Continue antibiotic treatment 4. Patient with acute on chronic liver failure. Will follow-up with this patient closely Vitals/Labs Vital Signs Date Time Temp Pulse Resp B/P (MAP) Pulse Ox O2 Delivery O2 Flow Rate FiO2 03/01/25 11:36 98.4 69 17 133/68 95 Room Air 02/28/25 22:40 0 21 Laboratory Tests 03/01/25 06:26 Medications Current Medications Lactated Ringer's 1,000 ml @ 0 mls/hr ONCE ONCE IV Last administered on 02/28/25at 09:48; Start 02/28/25 at 10:00; Stop 02/28/25 at 10:01; Status DC Ceftriaxone Sodium 1 gm ONCE ONCE IVPB Last administered on 02/28/25at 11:10; Start 02/28/25 at 11:00; Stop 02/28/25 at 11:01; Status DC Famotidine 20 mg Q48H IV Last administered on 02/28/25at 21:02; Start 02/28/25 at 21:00; Stop 03/30/25 at 20:59 Sodium Chloride 1,000 ml @ 100 mls/hr Q10H IV Last administered on 03/01/25at 02:45; Start 02/28/25 at 12:30; Stop 03/30/25 at 12:29 Ceftriaxone Sodium 2 gm Q24H IVPB; Start 03/01/25 at 12:30; Stop 03/11/25 at 12:29 Acetaminophen 500 mg Q6H PRN PO; Start 02/28/25 at 12:30; Stop 03/30/25 at 12:29 Losartan Potassium 50 mg DAILY PO Last administered on 03/01/25at 08:23; Start 03/01/25 at 09:00; Stop 03/31/25 at 08:59 Hydralazine HCl 10 mg Q6H PRN IV; Start 03/01/25 at 05:30; Stop 03/31/25 at 05:29 FORREST GILBERT MD Mar 01, 2025 12:31
--- NOTE | 2025-03-01 12:42 | NUR ---
Nutrition consult per wt loss Reviewed labs, notes, and medications. Pt with liver CA, UBW of 170 lbs last month, poor PO and appetite POA, not on chemotherapy, consumes ensure @ home, GI soft/bland diet, elevated Cr 1.2, IV fluid per chart review. Wt via standing scale, last BM 02/28/25, mild muscle and fat loss, no wounds, no edema per nursing. 17% wt loss within 1 month, severe wt loss. Recommendations: -Provide GI soft bland + ensure HP TID w/ trays + neutropenic diet -Monitor PO intake -Encourage PO intake as able -If poor PO intake continues consider appetite stimulant -Monitor BM -If no BM >3 days consider stool softener -Monitor electrolytes -Replenish electrolytes per protocol -Monitor wts -Reweigh as able -Order Vit D, vit b-12 labs to rule out deficiencies -Provide MVI QD if medically feasible -Texture per [facility] recs -Recommend Pt to follow up with PCP -Monitor goals of care RD to follow + available for consult per protocol Addendum: 03/01/25 at [address] Amended: Links added.
--- NOTE | 2025-03-01 14:55 | NUR ---
DISCHARGE DISCHARGE INSTRUCTIONS GIVEN TO PATIENT,PATIENT VERBALIZED INSTRUCTIONS,SALINE LOCK DISCONTINUED NO REDNESS TO SITE, PATIENT INSTRUCTED PER MD TO KEEP WELL HYDRATED AND FOLLOW UP WITH ONCOLOGY APPOINTMENT .
[2025-03-01] MEDS ORDERED: PHARMACY COMMUNICATION 1 EACH EACH MISC SCH (15:30)
--- NOTE | 2025-03-01 17:44 | NUR ---
PT DC prior to PT eval.
== END 2025-03-01 14:55 | disposition home or self-care (01) ==
LOC: EDH 09:31 → EDHIP 12:07 → 3BH 22:29
PROVIDERS: ADMIT Internal Medicine; ATTEND Internal Medicine
DX: N39.0 Urinary tract infection, site not specified (principal); E86.0 Dehydration; R62.7 Adult failure to thrive; R79.89 Other specified abnormal findings of blood chemistry; N17.9 Acute kidney failure, unspecified; I10 Essential (primary) hypertension; E78.5 Hyperlipidemia, unspecified; F41.9 Anxiety disorder, unspecified; C22.0 Liver cell carcinoma; R63.4 Abnormal weight loss; Z85.05 Personal history of malignant neoplasm of liver; Z79.899 Other long term (current) drug therapy; Z68.27 Body mass index [BMI] 27.0-27.9, adult
CPT/HCPCS: 96376; 96361 ×2; 96375; 99285; 83036; 84443; 82550; 84484; 80053; 83690; 85025 ×2; 87086; 81001; 36415 ×2; 71045; 70450; 74176; 93005; 84145; 96365; 80048; 82306; 82607; G0378 ×27; J7120; J3490; J0696 ×2

== ENCOUNTER 2025-03-17 05:14 | Observation (INO) | payer OTHER, MEDICAID ==
[~2025-03-17] VITALS: Ht 152.4 cm; Wt 64.9 kg
[2025-03-17] VITALS (21 sets, daily range): BP systolic 132–160; BP diastolic 55–90; PULSE 54–71; RESP 14–18; TEMP 97.1–97.9; O2SAT 97–99
[~2025-03-17 05:14] MED LIST changes: +AMOX-426 PO; +ONDA-104 PO
--- NOTE | 2025-03-17 05:33 | ERN ---
ED Note History of Present Illness Stated Complaint: BLEEDING Chief Complaint: Rectal Bleed Time Seen by MD: 05:22 Dictation: This is an 80-year-old female who presented to the emergency room for evaluation of rectal bleeding that started 2 hours prior to presentation. Patient began experiencing pain in the lower abdomen in the hypogastric area after which she saw bright red blood per rectum. She denied any diarrhea also admits to emesis. No history of any kidney stones no dysuria hematuria. No fever chills rigors. She denied taking any blood thinners.patient underwent liver biopsy by IR with pathology showing moderately differentiated hepatocellular carcinoma. As the patient lost significant amount of weight, Dr. Raines, the oncologist opined that the patient is not a candidate for chemotherapy or surgery. Patient apparently was seen by Dr. Clarke who discussed possibility of a palliative chemo and patient wanted to pursue that when comfort care was discussed during her previous hospitalization. Temperature 98 pulse 68 respirations 19 blood pressure 148/59 with a pulse oximetry of 97% on room air Chronic medical problems include hypertension, anxiety, history of a liver cancer Allergies: Coded Allergies: No Known Drug Allergies (Unverified Allergy, Unknown, 03/03/16) Home Meds Active Scripts Amoxicillin/Potassium Clav (Augmentin 500-125 Tablet) 500 Mg-125 Mg Tablet, 1 TAB PO BID for 5 Days, #10 TAB 0 Refills Prov:FRITZ PEDROZA MD 03/01/25 Ondansetron HCl (Ondansetron HCl) 4 Mg Tablet, 1 TAB PO Q4HPRN PRN for nausea/vomiting for 7 Days, #42 TAB 0 Refills Prov:FRITZ PEDROZA MD 03/01/25 Reported Medications Losartan Potassium (Losartan Potassium) 100 Mg Tablet, 1 TAB PO DAILY 01/27/25 Past Medical History Past Medical History: Anxiety, Hypertension Additional Past Medical Hx: VERTIGO , LIVER CANCER Surgical History: Other Surgical History Other: LT SHOULDER SX Family History: Negative Social History: Negative, Lives with family History: Not Applicable RN Note Reviewed/Agreed w/PFSH: Yes Review of System Dictation Constitutional: Negative for fever,chills, and weight loss Eyes: Negative for injury, pain,redness, and discharge ENT: Negative for injury,pain or swelling Cardiovascular: Negative for chest pain, palpitations, and edema Respiratory: Negative for shortness of breath, cough, and wheezing, Abdomen/GI: Positive for abdominal pain, nausea, vomiting, denied diarrhea, and constipation positive for bright red blood per rectum Back: Negative for injury and pain : Negative for injury, bleeding and discharge MS/Extremity: Negative for injury and deformity Skin: Negative for rash, and discoloration Neuro: Negative for headache, weakness, numbness, tingling, and seizure Psych: Negative for suicide ideation, homicidal ideation, and hallucinations Initial Vital Sign VS Vital Signs Date Time Temp Pulse Resp B/P (MAP) Pulse Ox O2 Delivery O2 Flow Rate FiO2 03/17/25 05:15 98.1 68 19 148/59 97 Room Air 03/17/25 05:30 0 21 Physical Exam Dictation General: awake, alert, NAD Head/Face: Normocephalic, atraumatic Eyes: PERRL, EOMI, vision at baseline ENT: oral cavity clear, TMs clear, no signs of infection Neck: Trachea midline, supple, no nuchal rigidity Cardiovascular: RRR, normal S1/S2, No MRGs, no JVD Respiratory: CTAB, no respiratory distress, No rales or wheezes Abdomen: Soft, non-tender, non-distended, normal bowel sounds, no guarding or rebound. Skin: Warm, dry, normal turgor, no rash MS/Extremity: Pulses equal, no cyanosis, neurovascular intact, FROM Neuro: COAx4, GCS 15, strength 5/5, CN 2-12 intact, normal cerebellar exam, normal gait, Psych: Normal behavior, mood, and affect normal Extremities-trace edema without any palpable cords, Homans sign is negative Results (Laboratory/Radiology) Laboratory/Radiology Laboratory Tests Test 03/17/25 05:30 03/17/25 05:53 03/17/25 06:51 White Blood Count 5.2 K/uL (4.8-10.8) Red Blood Count 5.45 MIL/uL (4.00-5.50) Hemoglobin 13.0 g/dL (12.0-16.0) Hematocrit 42.4 % (36-48) Mean Corpuscular Volume 77.8 fL (79-99) L Mean Corpuscular Hemoglobin 23.9 pg (27.0-33.0) L Mean Corpuscular Hemoglobin Concent 30.7 g/dL (32.0-36.0) L Red Cell Distribution Width 22.2 % (11.0-15.5) H Platelet Count 350 K/uL (130-400) Mean Platelet Volume 9.8 fL (7.5-10.5) Immature Granulocyte % (Auto) 0.4 % (0-1) Neutrophils (%) (Auto) 74.7 % (40.0-77.0) Lymphocytes (%) (Auto) 14.6 % (21.0-51.0) L Monocytes (%) (Auto) 8.4 % (3.0-13.0) Eosinophils (%) (Auto) 1.5 % (0.0-8.0) Basophils (%) (Auto) 0.4 % (0.0-5.0) Neutrophils # (Auto) 3.9 K/uL (1.8-7.7) Lymphocytes # (Auto) 0.8 K/uL (1.0-4.8) L Monocytes # (Auto) 0.4 K/uL (0.1-1.0) Eosinophils # (Auto) 0.08 K/uL (0.00-0.70) Basophils # (Auto) 0.02 K/uL (0.00-0.20) Absolute Immature Granulocyte (auto 0.02 K/uL (0-1) Nucleated Red Blood Cells 0.0 % (0.0-0.19) Red Blood Cell Morphology See comments Prothrombin Time 11.6 SEC (9.6-11.6) Prothromb Time International Ratio 1.11 (0.85-1.15) Activated Partial Thromboplast Time 27.9 SEC (26.3-35.5) Sodium Level 137 mmol/L (136-145) Potassium Level 4.0 mmol/L (3.5-5.1) Chloride Level 103 mmol/L (101-111) Carbon Dioxide Level 23 mmol/L (21-32) Blood Urea Nitrogen 18 mg/dL (7-18) Creatinine 1.1 mg/dL (0.5-1.0) H Glomerular Filtration Rate Calc 51 mL/min (>90) Random Glucose 88 mg/dL (70-105) Total Calcium 9.6 mg/dL (8.5-10.1) Total Bilirubin 1.4 mg/dL (0.2-1.0) H Direct Bilirubin 0.6 mg/dL (0.0-0.3) H Aspartate Amino Transf (AST/SGOT) 364 U/L (10-37) H Alanine Aminotransferase (ALT/SGPT) 61 U/L (12-78) Alkaline Phosphatase 239 U/L (50-136) H Total Protein 7.9 g/dL (6.0-8.3) Albumin 3.5 g/dL (3.5-5.0) Lipase 25 U/L (16-77) Stool Occult Blood POSITIVE (NEGATIVE) H Urine Color YELLOW (YELLOW) Urine Appearance CLEAR (CLEAR) Urine pH 5.5 (5.0-8.0) Urine Specific [place] 1.013 (1.001-1.031) Urine Protein 10 mg/dL (NEGATIVE) H Urine Glucose (UA) NEGATIVE mg/dL (NEGATIVE) Urine Ketones 5 mg/dL (NEGATIVE) H Urine Occult Blood NEGATIVE (NEGATIVE) Urine Nitrate NEGATIVE (NEGATIVE) Urine Bilirubin NEGATIVE mg/dL (NEGATIVE) Urine Urobilinogen 2.0 mg/dL (0.2-1.0) H Urine Leukocyte Esterase 250 [place]/uL (NEGATIVE) H Labs Reviewed?: Yes CT Scan Comment: REASON: Loss of apertie, liver cancer ORDERING PHYSICIAN: BETY MCCLAIN MD PROCEDURE: ABD PEL WO - CT ABDOMEN/PELVIS W/O CONTRAST EXAM: CT Abdomen and Pelvis Without IV contrast CLINICAL HISTORY: Loss of apertie, liver cancer TECHNIQUE: Axial computed tomography images of the abdomen and pelvis without intravenous contrast. CONTRAST: No IV contrast. COMPARISON: Study dated 01/27. FINDINGS: LUNG BASES: The lung bases appear clear. No pleural effusions are seen. LIVER: A well-defined lobulated hypodense lesion is noted involving the right lobe of the liver, measuring 11.5 x 10.2 x 11.2 cm consistent with hepatoma. Trace subcapsular fluid within the right hepatic lobe. GALLBLADDER AND BILE DUCTS: The gallbladder appears within normal limits. No radiopaque gallstones are seen. No biliary ductal dilatation is evident. PANCREAS: Unremarkable. SPLEEN: Unremarkable. ADRENAL GLANDS: Unremarkable. KIDNEYS, URETERS, AND BLADDER: The kidneys appear within normal limits. There is no hydronephrosis or hydroureter. No urinary calculi are seen. STOMACH AND BOWEL: Bowel loops are normal in caliber without evidence of obstruction, ileus, or bowel wall thickening. Colonic diverticulosis without evidence for diverticulitis. APPENDIX: No evidence of acute appendicitis on CT examination. PERITONEUM: No free fluid. No free air. Pelvic phlebolith. LYMPH NODES: No lymphadenopathy is evident. REPRODUCTIVE: Unremarkable as visualized. VASCULATURE: No evidence of abdominal aortic aneurysm. BONES: Degenerative changes are noted along the visualized spine. No aggressive appearing osseous lesion. No acute osseous pathology evident. IMPRESSION: 1. Large right hepatic lobe mass measuring 11.5 x 10.2 x 11.2 cm, consistent with hepatoma, with trace subcapsular fluid. 2. No other acute findings. /[place] DICTATED BY: DEVON MORENO Jr., MD DATE: 02/28/251452 ELECTRONICALLY SIGNED BY: DEVON MORENO Jr., MD DATE: 02/28/251452 ED Course ED Course Orders Procedure Category Date Status Time Cbc With Differential LAB 03/17/25 Complete 05:18 Basic Metabolic Panel LAB 03/17/25 Complete 05:18 Pt And Ptt LAB 03/17/25 Complete 05:18 Urinalysis Profile LAB 03/17/25 In Process 05:18 Hepatic Function Panel LAB 03/17/25 Complete 05:18 Lipase LAB 03/17/25 Complete 05:18 Type And Screen BBK 03/17/25 Complete 05:18 Occult Blood Stool LAB 03/17/25 Complete Single Only 05:25 0.9%Nacl 1000ml (Ns PHA 03/17/25 In Process 1000ml) 05:30 Ondansetron 4mg Inj PHA 03/17/25 Complete (Zofran 4mg Inj) 05:30 Pantoprazole 40mg Inj PHA 03/17/25 Complete (Protonix 40mg Inj 05:30 Culture Urine TRUMAN 03/17/25 In Process 07:06 Current Medications Medications (Trade) Dose Ordered Sig/Jorgito Route PRN Reason Start Time Stop Time Status Last Admin Dose Admin Ondansetron HCl (zoFRAN 4MG INJ) 4 mg ONCE ONCE IVP 03/17/25 05:30 03/17/25 05:31 DC 03/17/25 05:41 Pantoprazole Sodium (PROTonix 40MG INJ) 80 mg ONCE ONCE IVP 03/17/25 05:30 03/17/25 05:31 DC 03/17/25 05:41 Sodium Chloride 1,000 ml @ 125 mls/hr ONCE ONCE IV 03/17/25 05:30 03/17/25 13:29 03/17/25 05:41 Vital Signs Date Time Temp Pulse Resp B/P (MAP) Pulse Ox O2 Delivery O2 Flow Rate FiO2 03/17/25 06:46 98.2 67 16 150/54 100 Room Air* 0 21 03/17/25 05:30 98.2 67 16 143/73 97 Room Air* 0 21 03/17/25 05:15 98.1 68 19 148/59 97 Room Air We will perform diagnostic labs, advanced imaging and administer medications according to the patient's complaint. Once the results are available, will review and personally interpreted the labs to rule out any acute life- threatening emergency the trach require immediate intervention and treatment. I will then re-evaluate the patient after treatment and diagnostic exams have return to determine whether the patient requires any further testing, can safely be discharged home or need further admission to hospital for additional treatment and evaluation. 6:30 a.m. labs reviewed CBC is with a normal limits BNP 7 is significant for a BUN and creatinine of 18 and 1.1. Liver function studies are very abnormal bilirubin of 1.4 stool occult is positive. Patient has been diagnosed with hepatocellular carcinoma more than 6-7 weeks ago and her performance status is extremely poor in terms of weight loss failure to thrive. In my opinion, focus should be more on treatable problems and I recommended readmission as she was just discharged on 03/01/2025 for evaluation of the GI bleed I updated the patient and she would like to pursue further supportive and aggressive care at this time and I recommended admission for GI bleed evaluation. Patient will be admitted to the hospitalist service for further management. [facility] Medical Decision Making MDM Differential diagnosis: Diverticulosis, hemorrhoids, colitis, diverticulitis, colon CA, coagulopathy Rationale: Tests considered and ordered secondary to shared decision making include: labs, ECG and radiology Previous outside records reviewed: Old ER visits. Risk of complication and/or morbidity or mortality of patient management: None Medications-Per medication reconciliation Need for hospitalization: Patient does meet criteria for hospitalization. Need for emergency major/minor surgery: No There are no social concerns with this patient. Prescription drug management Prescriptions will include symptomatic care Patient's prior external medical records from other ER visits were reviewed by me as indicated. Prior testing and results from previous visits were reviewed. Prior tests were taken into account with medical decision making and resource utilization, independent historian/historians were used to obtain complete medical history. I independently interpreted the test that were performed, results were reviewed by me and considered findings on radiology if ordered. Medical management and examination interpretation discussions were had by me with other qualified healthcare professionals as indicated for the patient's care. Problem List Problem List: (1) BRBPR (bright red blood per rectum) (2) Abnormal liver function (3) Hepatocellular carcinoma DX & DISP Disposition: Inpatient Decision to Admit Time: 06:37 Departure Impression: Primary Impression: BRBPR (bright red blood per rectum) Additional Impressions: Hepatocellular carcinoma, Abnormal liver function, Cancer cachexia Condition: Stable Additional Instructions: Patient was informed of all the diagnostic labs and procedures conducted in the emergency room today and demonstrated understanding of the results. I personally reviewed and interpreted all the diagnostic exams performed in the ER today. The patient will be admitted to the hospital for further treatment and evaluation. Disposition-admit to facility Condition-stable/guarded Course-uncertain at this time Pain status-decreased Assessment-exam unchanged Admission Certification- I certify that the patients status is appropriate and is based on my best clinical judgment and the patient's condition as documented in the medical records Referrals: JANEEN SONG (PCP) ETELVINA HOFFMAN MD Mar 17, 2025 05:33
[2025-03-17] MEDS: 0.9%NACL 1000ML 1,000 ML IV ONE (05:41)
[2025-03-17 05:43] LABS: IMMATURE GRANULOCYTE ABSOLUTE 0.02 K/uL (0-1); NUCLEATED RED BLOOD CELLS 0.0 % (0.0-0.19); PLATELET COUNT (AUTO) 350 K/uL (130-400); RED BLOOD CELL COUNT(AUTO) 5.45 MIL/uL (4.00-5.50); RED CELL DISTRIBUTION WIDTH 22.2 % (11.0-15.5); WHITE BLOOD COUNT (AUTO) 5.2 K/uL (4.8-10.8)
[2025-03-17 05:56] LABS: INR 1.11 (0.85-1.15)
[2025-03-17 05:57] LABS: ASPARTATE AMINOTRANSFERASE 364.0 U/L (10-37); CREATININE 1.1 mg/dL (0.5-1.0); GLOMERULAR FILTR. RATE CALC 51.0 mL/min (>90); GLUCOSE,RANDOM 88.0 mg/dL (70-105); SODIUM SERUM 137.0 mmol/L (136-145); TOTAL PROTEIN, SERUM 7.9 g/dL (6.0-8.3); UREA NITROGEN, BLOOD 18.0 mg/dL (7-18)
[2025-03-17 07:01] LABS: APPEARANCE,URINE CLEAR (CLEAR); GLUCOSE, URINE (UA) NEGATIVE (NEGATIVE); LEUKOCYTE ESTERASE ,URINE 250 Leu/uL (NEGATIVE); NITRATE,URINE NEGATIVE (NEGATIVE); OCCULT BLOOD,URINE NEGATIVE (NEGATIVE)
[2025-03-17 07:05] LABS: ADD UA MICROSCOPIC YES
[2025-03-17 07:11] LABS: NON-SQUAMOUS EPITHELIAL CELL 1 /HPF (0-2); SQUAMOUS EPITHELIAL CELL,UR RARE /HPF (0-2)
[2025-03-17] MEDS ORDERED: guaiFENesin-DM 200/20MG 10ML PO PRN (07:30)
[2025-03-17] MEDS ORDERED: NITROGLYCERIN 0.4 MG SL TAB SL PRN (07:30)
[2025-03-17] MEDS ORDERED: MAGNESIUM 2GM PREMIX 50ML 50 ML IV PRN (07:30)
[2025-03-17] MEDS ORDERED: LACTULOSE 20 GM/30 ML UDCUP PO PRN (07:30)
[2025-03-17] MEDS ORDERED: DEXTROSE 50%-WATER 50 ML DISP.SYRIN IV PRN (07:30)
[2025-03-17] MEDS ORDERED: PoTASSium chl 10% ELIXIR 20MEQ 20 MEQ/15 ML UDCUP PO PRN (07:30)
[2025-03-17] MEDS ORDERED: FAMOTIDINE 20MG VIAL IV PRN (07:30)
[2025-03-17] MEDS ORDERED: GLUCAGON 1MG KIT 1 MG ML IM PRN (07:30)
[2025-03-17] MEDS ORDERED: MAG/ALUM/SIMETH 30 ML UDCUP PO PRN (07:30)
[2025-03-17] MEDS: 0.9%NACL 1000ML 1,000 ML IV SCH (07:54)
[2025-03-17] MEDS: FAMOTIDINE 20MG VIAL IV SCH (07:55)
[2025-03-17] MEDS: ZOSYN 3.375GM+NS 50ML 50 ML IV SCH (07:55)
--- NOTE | 2025-03-17 08:07 | NUR ---
patient refusing to see dr leone. prefers to see her own oncologist
[2025-03-17 09:24] LABS: INR 1.14 (0.85-1.15)
--- NOTE | 2025-03-17 10:56 | HP ---
[facility] HISTORY AND PHYSICAL Date of Service: Mar 17, 2025 Time of Service: 10:44 PCP: Dr Mo Kirkpatrick Admitting: Dr Rogers, Allergies: No Allergy Information Available, No Known Drug Allergies HISTORY OF PRESENT ILLNESS: [ Patient is 80 years old female with recently diagnosis of liver cancer about two months ago, hypertension, hyperlipidemia, who came to emergency department for evaluation of rectal bleed that started about 2 hours prior coming to ER. Patient is complaining of lower abdominal pain. Patient has saw a bright red blood that came out of her rectum. Patient denies any diarrhea or any emesis. Patient does not have any history of dysuria or hematuria. Patient denies any fever, chills, shortness of breaths. Patient also denies taking any blood thinners. ] Regarding patient new diagnosis of liver cancer and recent admission to the hospital Patient underwent liver biopsy by IR with pathology showing moderately differentiated hepatocellular carcinoma. As the patient lost significant amount of weight, Dr. Raines, the oncologist opined that the patient is not a candidate for chemotherapy or surgery. Patient apparently was seen by Dr. Clarke who discussed possibility of a palliative chemo and patient wanted to pursue that when comfort care was discussed during her previous hospitalization. Patient denies consulting any oncologist at this moment since she said that she wants to follow up with Dr. Clarke in [place]. Patient stated that here she came because of the abdominal pain and rectal bleed. GI will be consulted. Most recent vital signs temperature 97.2 pulse 59 respirations 16 blood pressure 140/57 patient is on room air satting 99%. WBC 5.2 hemoglobin 13 hematocrit 42.4 platelets 350 UA positive for leukocytosis. Stool occult blood positive. Sodium 137 potassium 4.0 CO2 23 BUN 18 creatinine 1.1 GFR 51 bilirubin 1.4 AST 364 ALT 61 albumin 3.5. Urine culture pending. CT abdomen/pelvis pending. Chest x-ray pending. Patient will be admitted under hospitalist care for further evaluation/recommendation. A.m. lab REVIEW OF SYSTEMS CONSTITUTIONAL: Denies fevers, chills, or night sweats. No unintentional weight loss reported. NEUROLOGICAL: Denies headache, amaurosis fugax, motor weakness, sensory deficit, vertigo/spinning sensation, gait abnormalities, or tremors. ENT: No hearing loss, otalgia, otorrhea, rhinitis, rhinorrhea, hoarseness, or sore throat. CARDIOVASCULAR: Denies any exertional angina, dyspnea on exertion, orthopnea, paroxysmal nocturnal dyspnea, palpitations, life-threatening arrhythmias, claudication. PULMONARY: Denies any shortness of breath, cough, phlegm/sputum, hemoptysis, pleuritic chest pain. SLEEP: Denies morning headaches, daytime somnolence or napping. Denies difficulty falling asleep, staying asleep, waking from sleep. Denies knowledge of snoring. GASTROINTESTINAL: Denies any type of dysphagia to either liquids or solids. Denies nausea, vomiting, pyrosis, early satiety, , diarrhea, constipation, or changes in stool consistency or caliber. Denies coffee-ground emesis, hematemesis, hematochezia, Complains of abdominal pain and bright red bleed from her rectum GENITOURINARY: Denies frequency, urgency, nocturia, hematuria or incontinence (Storage/Irritative symptoms.) Low urinary stream, straining to void, urinary intermittency or hesitancy, splitting of the voiding stream, terminal dribbling. ENDOCRINOLOGIC: Denies polyuria, polydipsia, polyphagia or heat/cold intolerances. HEMATOLOGIC: Denies thrombophilia/previous clots, or coagulopathy/bleeding disorders. ONCOLOGIC: Denies personal history of malignancy. DERMATOLOGIC: Denies rashes or pruritus. PSYCHIATRIC: Denies any suicidal or homicidal ideation. Denies hallucinations. PAST MEDICAL HISTORY: [ Liver cancer, hypertension, hyperlipidemia, ] PAST SURGICAL HISTORY: [ History of left shoulder surgery ] PAST SOCIAL HISTORY: [ Patient denies smoking, denies any alcohol use. Denies any drug illicit ] FAMILY HISTORY: [ Patient lives at home with the family ] Coded Allergies: No Known Drug Allergies (Unverified Allergy, Unknown, 03/03/16) PHYSICAL EXAM GENERAL APPEARANCE: The patient is awake, alert, and oriented, in no acute cardiopulmonary distress. NEUROLOGICAL: Cranial nerves II-XII grossly intact. Motor is 5/5 in bilateral upper and lower extremities proximal to distal. No sensory deficits. HEENT: Face is symmetric. Pupils are equal and reactive. Extraocular movements are intact. NECK: Supple. No JVD. No thyromegaly. No submental, submandibular, pre-/p ostauricular, occipital or supraclavicular lymphadenopathy. CHEST: Normal chest expansion. No Telemetry. LUNGS: Absence of any rales, rhonchi or any wheezing. CARDIOVASCULAR: Regular. S1 and S2 normal. No appreciable rubs, murmurs or gallops. ABDOMEN: Soft, nontender, and nondistended. There is no rebound, voluntary guarding, or rigidity. : Deferred. No Rizzo. EXTREMITIES: Non-edematous and not cyanotic. No clubbing. Good capillary refill. SKIN: No skin breakdown. Vital Sign (Last 24 Hours) 03/17/25 07:21 Temp 97.2 Pulse 59 Resp 16 B/P (MAP) 140/57 Pulse Ox 99 O2 Delivery Room Air* O2 Flow Rate 0 FiO2 21 LABS: Laboratory: Test 03/17/25 09:10 03/17/25 08:02 03/17/25 06:51 03/17/25 05:53 Range/Units Prothrombin Time 11.9 H 9.6-11.6 SEC Prothromb Time International Ratio 1.14 0.85-1.15 Activated Partial Thromboplast Time 29.3 26.3-35.5 SEC Whole Blood Glucose 92 70-110 MG/DL Urine Color YELLOW YELLOW Urine Appearance CLEAR CLEAR Urine pH 5.5 5.0-8.0 Urine Specific [place] 1.013 1.001-1.031 Urine Protein 10 H NEGATIVE mg/dL Urine Glucose (UA) NEGATIVE NEGATIVE mg/dL Urine Ketones 5 H NEGATIVE mg/dL Urine Occult Blood NEGATIVE NEGATIVE Urine Nitrate NEGATIVE NEGATIVE Urine Bilirubin NEGATIVE NEGATIVE mg/dL Urine Urobilinogen 2.0 H 0.2-1.0 mg/dL Urine Leukocyte Esterase 250 H NEGATIVE [place]/uL Urine RBC 0-1 0-1 /HPF Urine WBC 11-25 H 0-1 /HPF Urine Squamous Epithelial Cells RARE 0-2 /HPF Urine Non-Squamous Epithelial Cells 1 0-2 /HPF Urine Bacteria RARE None Seen /HPF Stool Occult Blood POSITIVE H NEGATIVE Test 03/17/25 05:30 Range/Units White Blood Count 5.2 4.8-10.8 K/uL Red Blood Count 5.45 4.00-5.50 MIL/uL Hemoglobin 13.0 12.0-16.0 g/dL Hematocrit 42.4 36-48 % Mean Corpuscular Volume 77.8 L 79-99 fL Mean Corpuscular Hemoglobin 23.9 L 27.0-33.0 pg Mean Corpuscular Hemoglobin Concent 30.7 L 32.0-36.0 g/dL Red Cell Distribution Width 22.2 H 11.0-15.5 % Platelet Count 350 130-400 K/uL Mean Platelet Volume 9.8 7.5-10.5 fL Immature Granulocyte % (Auto) 0.4 0-1 % Neutrophils (%) (Auto) 74.7 40.0-77.0 % Lymphocytes (%) (Auto) 14.6 L 21.0-51.0 % Monocytes (%) (Auto) 8.4 3.0-13.0 % Eosinophils (%) (Auto) 1.5 0.0-8.0 % Basophils (%) (Auto) 0.4 0.0-5.0 % Neutrophils # (Auto) 3.9 1.8-7.7 K/uL Lymphocytes # (Auto) 0.8 L 1.0-4.8 K/uL Monocytes # (Auto) 0.4 0.1-1.0 K/uL Eosinophils # (Auto) 0.08 0.00-0.70 K/uL Basophils # (Auto) 0.02 0.00-0.20 K/uL Absolute Immature Granulocyte (auto 0.02 0-1 K/uL Nucleated Red Blood Cells 0.0 0.0-0.19 % Red Blood Cell Morphology See comments Sodium Level 137 136-145 mmol/L Potassium Level 4.0 3.5-5.1 mmol/L Chloride Level 103 101-111 mmol/L Carbon Dioxide Level 23 21-32 mmol/L Blood Urea Nitrogen 18 7-18 mg/dL Creatinine 1.1 H 0.5-1.0 mg/dL Glomerular Filtration Rate Calc 51 >90 mL/min Random Glucose 88 70-105 mg/dL Total Calcium 9.6 8.5-10.1 mg/dL Total Bilirubin 1.4 H 0.2-1.0 mg/dL Direct Bilirubin 0.6 H 0.0-0.3 mg/dL Aspartate Amino Transf (AST/SGOT) 364 H 10-37 U/L Alanine Aminotransferase (ALT/SGPT) 61 12-78 U/L Alkaline Phosphatase 239 H 50-136 U/L Total Protein 7.9 6.0-8.3 g/dL Albumin 3.5 3.5-5.0 g/dL Lipase 25 16-77 U/L Current Medications Medications (Trade) Dose Ordered Sig/Jorgito Route PRN Reason Start Time Stop Time Status Last Admin Dose Admin Acetaminophen (TYLenol 325MG TAB) 650 mg Q4H PRN PO MILD PAIN (1-3) 03/17/25 07:30 03/17/25 07:27 DC Acetaminophen (TYLenol 325MG TAB) 650 mg Q6H PRN PO MILD PAIN (1-3) 03/17/25 07:30 04/16/25 07:29 Acetaminophen (TYLenol 325MG TAB) 650 mg Q6H PRN PO TEMPERATURE GREATER THAN 101.5 03/17/25 07:30 04/16/25 07:29 Al Hydroxide/Mg Hydroxide (MAALox PLUS 30ML) 30 ml Q6H PRN PO INDIGESTION 03/17/25 07:30 04/16/25 07:29 Dextrose (D50w) 50 ml AD PRN IV HYPOGLYCEMIA PROTOCOL 03/17/25 07:30 04/16/25 07:29 Diphenhydramine HCl (BENAdryl INJ) 25 mg Q6H PRN IV SEVERE ITCHING/RASH 03/17/25 07:30 04/16/25 07:29 Famotidine (Pepcid 20mg Vial) 20 mg BID PRN IV NAUSEA/VOMITING 03/17/25 07:30 03/17/25 07:27 DC Famotidine (Pepcid 20mg Vial) 20 mg Q48H IV 03/17/25 09:00 04/16/25 08:59 03/17/25 07:55 20 MG Glucagon (Glucagon 1mg Kit) 1 mg AD PRN IM HYPOGLYCEMIA PROTOCOL 03/17/25 07:30 04/16/25 07:29 Guaifenesin/ Dextromethorphan (RobiTUSSin DM 200/20MG 10ML) 10 ml Q4H PRN PO COUGH 03/17/25 07:30 04/16/25 07:29 Hydralazine HCl (APRESOLine 20MG INJ) 10 mg Q6H PRN IV For:SBP above 160;DBP above 90 03/17/25 07:30 04/16/25 07:29 Insulin Human Regular (humuLIN R 100 UNIT/ML 3ML) INSULIN SLIDING SCAL... ACHS SQ 03/17/25 07:30 04/16/25 07:29 Ketorolac Tromethamine (toRADol) 15 mg Q8H PRN IV MODERATE PAIN (4-6) 03/17/25 07:30 03/22/25 07:29 Lactulose (Constulose 20gm/ 30ml Udcup) 20 gm BID PRN PO CONSTIPATION 03/17/25 07:30 04/16/25 07:29 Magnesium Sulfate 50 ml @ 0 mls/hr PROTOCOL IV 03/17/25 07:30 04/16/25 07:29 Magnesium Sulfate 50 ml @ 0 mls/hr PROTOCOL PRN IV other 03/17/25 07:30 03/17/25 07:23 DC Morphine Sulfate (morPHINE 2MG SYG) 1 mg Q4H PRN IVP SEVERE PAIN (7-10) 03/17/25 07:30 03/24/25 07:29 Nitroglycerin (Nitrostat) 0.4 mg PROTOCOL PRN SL CHEST PAIN 03/17/25 07:30 04/16/25 07:29 Ondansetron HCl (zoFRAN 4MG INJ) 4 mg Q6H PRN IV NAUSEA/VOMITING 03/17/25 07:30 04/16/25 07:29 Piperacillin Sod/ Tazobactam Sod 50 ml @ 12.5 mls/hr Q12H IV 03/17/25 08:00 03/27/25 07:59 03/17/25 07:55 12.5 MLS/HR Potassium Chloride 100 ml @ 100 mls/hr AD PRN IV POTASSIUM PROTOCOL 03/17/25 07:30 04/16/25 07:29 Potassium Chloride (K-Dur/Klor-Con 20meq) 10 meq AD PRN PO POTASSIUM PROTOCOL 03/17/25 07:30 04/16/25 07:29 Potassium Chloride (KCl 10% Elixir 20meq/15ml) 10 meq AD PRN PO POTASSIUM PROTOCOL 03/17/25 07:30 04/16/25 07:29 Sodium Chloride 1,000 ml @ 100 mls/hr Q10H IV 03/17/25 07:30 04/16/25 07:29 03/17/25 07:54 100 MLS/HR Zolpidem Tartrate (AmbIEN) 5 mg HS PRN PO INSOMNIA 03/17/25 07:30 04/16/25 07:29 DIAGNOSTICS / RADIOLOGY: [ ] ASSESSMENT: [Acute blood loss POA Acute GI bleed POA New/recent diagnosis of liver cancer POA Uncontrolled hypertension POA Acute kidney injury POA Acute dehydration POA Elevated liver enzymes POA Acute complicated cystitis POA Stool occult positive POA Multifactorial anemia possibly due to above POA Hyperlipidemia POA ] PLAN: [ Admit to: Medical-surgical floor with tele Consults: GI. Patient denies consultation of oncologist Antibiotics: Zosyn Tests: CT abdomen/pelvis, chest x-ray NEURO: Minimize central acting medications as possible. Fall Precautions. Well lighted room through the day and minimize interruptions through the night to prevent acute delirium. PULMONARY: Chest x-ray pending Supplemental 02 as needed BiPAP as necessary, for respiratory distress Titrate Fio2 to keep Spo2 > or = 90% DuoNebs and CPT as needed IS hourly while awake for pulmonary hygiene Out of bed to chair as tolerated VAP Bundle Maintain aspiration precautions at all times CARDIOVASCULAR: Follow hemodynamics. Vital signs per facility protocol GI & NUTRITION: CT abdomen/pelvis pending Continue nutritional support Aspirations precautions Prokinetic agents and laxatives as needed KIDNEYS & ELECTROLYTES: Strict monitoring of intake and output Daily weights Avoid nephrotoxic agents Monitor electrolytes and replace as needed Goal urine output of 30mL/hr or 0.5mL/kg/hr Medications to be dosed according to renal function. Avoid contrast if possible ENDOCRINE: Maintain blood glucose between 100-180 at all times. Insulin sliding scale for blood glucose management Hypoglycemia and hyperglycemia protocol in place INFECTIOUS DISEASE: Trend temperature, WBC and procalcitonin level Follow cultures, deescalate antibiotics as soon as possible. Panculture if new onset fever HEMATOLOGY & COAGULATION: Monitor H&H. Keep Hgb > 7 Transfuse 1 unit of PRBC for Hgb < 7 Transfuse 1 pack of platelets of platelets < 20, 000 Watch for any signs and symptoms of bleeding SKIN: Pressure ulcer prevention per facility protocol Specialty mattress as needed Treatment plan discussed with patient and family at the bedside Medications to be reconciled once obtained by patient and/or family and available to be reconciled in computer p.r.n. medication for pain nausea and vomiting Questions were answered We will continue to monitor the patient closely Wallcovering Hanger for disposition Rehab: PT/OT GI: PPI DVT: SCD's Code Status: Full Resuscitation Disposition: TBD Prognosis: Guarded] ADVANCED CARE PLANNING 1. Which of the following were discussed? Hospice Care - Yes / No Therapeutic options - Yes / No Advance Directives - Yes / No Other discussions - 2. Discussed with who? Patient 3. Voluntary nature of this service was explained to the patient? Yes / No 4. Amount of time spent - ___ more than 35 minutes ____ 5. Reviewed by Physician? (if this service was performed by NPP) Yes / No ATTESTATION BY PHYSICIAN I have seen and examined the patient. I reviewed the documentation, medical decision making, and treatment plan as noted by the mid-level provider above. I agree with the findings and plan of care. LEONIDAS ROGERS MD, KATARZYNA B [employer]ATOR Mar 17, 2025 10:56
--- NOTE | 2025-03-17 12:01 | NUR ---
patient taken to gi lab for egd
[2025-03-17] MEDS ORDERED: LIDOCAINE PF 100MG/5ML (2%) SYRINGE 5ML ONE (12:38)
[2025-03-17] MEDS: PEG 3350/NA SULF,BICARB,CL/KCL 4000 ML SOLN PO SCH (15:56)
--- NOTE | 2025-03-17 16:19 | HMCIMG ---
EXAM: CR Chest, 1 View. CLINICAL HISTORY: congestion COMPARISON: None provided. FINDINGS: LUNGS: There is no mass, infiltrate, or acute pulmonary abnormality. PLEURAL SPACES: No evidence of pleural effusion or pneumothorax. MEDIASTINUM: The cardiomediastinal silhouette is within normal limits. BONES: No aggressive appearing osseous lesion seen. IMPRESSION: No acute cardiopulmonary pathology is evident. /[place]
--- NOTE | 2025-03-17 20:15 | NUR ---
MEDS SHIFT ASSESSMENT DONE, PLEASE REFER TO CHART. DUE MEDS ADMINISTERED, TOLERATED WELL. KEPT ON CLEAR LIQUIDS AND ENCOURAGED TO DRINK MORE OF GOLYTELY. PT STILL 1/4 OF THE GALLOON TO TAKE. PT VERBALIZES OF HAVING WATER-LIKE STOOLS ALREADY. INSTRUCTED TO BE NPO POST MN, PT VERBALIZES UNDERSTANDING.
[2025-03-17] MEDS ORDERED: CARV12.511 PO (22:23)
[2025-03-17] MEDS ORDERED: OMEP40CA21 PO (22:23)
[2025-03-18] VITALS (20 sets, daily range): BP systolic 114–168; BP diastolic 55–84; PULSE 59–74; RESP 16–19; TEMP 97.5–98.4; O2SAT 93–96
[2025-03-18 03:26] LABS: IMMATURE GRANULOCYTE ABSOLUTE 0.01 K/uL (0-1); NUCLEATED RED BLOOD CELLS 0.0 % (0.0-0.19); PLATELET COUNT (AUTO) 307 K/uL (130-400); RED BLOOD CELL COUNT(AUTO) 4.82 MIL/uL (4.00-5.50); RED CELL DISTRIBUTION WIDTH 21.9 % (11.0-15.5); WHITE BLOOD COUNT (AUTO) 4.6 K/uL (4.8-10.8)
[2025-03-18 03:41] LABS: ASPARTATE AMINOTRANSFERASE 275.0 U/L (10-37); CREATINE KINASE, TOTAL 37.0 U/L (21-232); CREATININE 0.9 mg/dL (0.5-1.0); GLOMERULAR FILTR. RATE CALC 65.0 mL/min (>90); GLUCOSE,RANDOM 73.0 mg/dL (70-105); SODIUM SERUM 141.0 mmol/L (136-145); TOTAL PROTEIN, SERUM 6.1 g/dL (6.0-8.3); UREA NITROGEN, BLOOD 10.0 mg/dL (7-18)
[2025-03-18] MEDS: MAGNESIUM 2GM PREMIX 50ML 50 ML IV SCH (03:56)
--- NOTE | 2025-03-18 03:56 | NUR ---
REPLACE PT SLEPT AT INTERVALS DURING THE SHIFT. LAB RESULTS IN AND IV ELECTROLYTE REPLACEMENT STARTED. KEPT NPO FOR GI PROCEDURE.
--- NOTE | 2025-03-18 06:00 | NUR ---
SHOWER PT JUST HAD HER SHOWER, TOLERATED ACTIVITY WELL. PT HAD A BM, CLEAR, LIGHT YELLOW BUT WITH SEDIMENTS. KEPT NPO. RE-STARTED ON IVF OF NS AND MG REPLACEMENT IV. FOR MORE CARE.
--- NOTE | 2025-03-18 06:44 | NUR ---
GI PT TAKEN DOWN TO GI LAB FOR PROCEDURE.
[2025-03-18] MEDS ORDERED: LIDOCAINE HCL 1% 20 ML VIAL ONE (07:13)
--- NOTE | 2025-03-18 13:10 | PN ---
[facility] PROGRESS NOTE Date of Service: Mar 18, 2025 Time of Service: 13:[address] Rogers SUBJECTIVE: [ 03/17 Patient is 80 years old female with recently diagnosis of liver cancer about two months ago, hypertension, hyperlipidemia, who came to emergency [facility] for evaluation of rectal bleed that started about 2 hours prior coming to ER. Patient is complaining of lower abdominal pain. Patient has saw a bright red blood that came out of her rectum. Patient denies any diarrhea or any emesis. Patient does not have any history of dysuria or hematuria. Patient denies any fever, chills, shortness of breaths. Patient also denies taking any blood thinners. ] Regarding patient new diagnosis of liver cancer and recent admission to the hospital Patient underwent liver biopsy by IR with pathology showing moderately differentiated hepatocellular carcinoma. As the patient lost significant amount of weight, Dr. Raines, the oncologist opined that the patient is not a candidate for chemotherapy or surgery. Patient apparently was seen by Dr. Clarke who discussed possibility of a palliative chemo and patient wanted to pursue that when comfort care was discussed during her previous hospitalization. Patient denies consulting any oncologist at this moment since she said that she wants to follow up with Dr. Clarke in [place]. Patient stated that here she came because of the abdominal pain and rectal bleed. GI will be consulted. Most recent vital signs temperature 97.2 pulse 59 respirations 16 blood pressure 140/57 patient is on room air satting 99%. WBC 5.2 hemoglobin 13 hematocrit 42.4 platelets 350 UA positive for leukocytosis. Stool occult blood positive. Sodium 137 potassium 4.0 CO2 23 BUN 18 creatinine 1.1 GFR 51 bilirubin 1.4 AST 364 ALT 61 albumin 3.5. Urine culture pending. 03/18 patient was seen by nurse practitioner and physician during rounding in room 429. Urine culture still pending home medication reconciled. We will continue Zosyn at this moment antibiotic. Patient on full liquid diet. Patient is s/p colonoscopy polyp was removed. Chest x-ray negative. We will continue to monitor patient in the meantime. A.m. labs. Anticipated discharge within 24 hours.] REVIEW OF SYSTEMS CONSTITUTIONAL: Denies fevers, chills, or night sweats. No unintentional weight loss reported. NEUROLOGICAL: Denies headache, amaurosis fugax, motor weakness, sensory deficit, vertigo/spinning sensation, gait abnormalities, or tremors. ENT: No hearing loss, otalgia, otorrhea, rhinitis, rhinorrhea, hoarseness, or sore throat. CARDIOVASCULAR: Denies any exertional angina, dyspnea on exertion, orthopnea, paroxysmal nocturnal dyspnea, palpitations, life-threatening arrhythmias, claudication. PULMONARY: Denies any shortness of breath, cough, phlegm/sputum, hemoptysis, pleuritic chest pain. SLEEP: Denies morning headaches, daytime somnolence or napping. Denies difficulty falling asleep, staying asleep, waking from sleep. Denies knowledge of snoring. GASTROINTESTINAL: Denies any type of dysphagia to either liquids or solids. Denies nausea, vomiting, pyrosis, early satiety, , diarrhea, constipation, or changes in stool consistency or caliber. Denies coffee-ground emesis, hematemesis, hematochezia, complains of abdominal pain which has improved compared to the previous day GENITOURINARY: Denies frequency, urgency, nocturia, hematuria or incontinence (Storage/Irritative symptoms.) Low urinary stream, straining to void, urinary intermittency or hesitancy, splitting of the voiding stream, terminal dribbling. ENDOCRINOLOGIC: Denies polyuria, polydipsia, polyphagia or heat/cold intolerances. HEMATOLOGIC: Denies thrombophilia/previous clots, or coagulopathy/bleeding disorders. ONCOLOGIC: Denies personal history of malignancy. DERMATOLOGIC: Denies rashes or pruritus. PSYCHIATRIC: Denies any suicidal or homicidal ideation. Denies hallucinations. PHYSICAL EXAM GENERAL APPEARANCE: The patient is awake, alert, and oriented, in no acute cardiopulmonary distress. NEUROLOGICAL: Cranial nerves II-XII grossly intact. Motor is 5/5 in bilateral upper and lower extremities proximal to distal. No sensory deficits. HEENT: Face is symmetric. Pupils are equal and reactive. Extraocular movements are intact. NECK: Supple. No JVD. No thyromegaly. No submental, submandibular, pre- /postauricular, occipital or supraclavicular lymphadenopathy. CHEST: Normal chest expansion. No Telemetry. LUNGS: Absence of any rales, rhonchi or any wheezing. CARDIOVASCULAR: Regular. S1 and S2 normal. No appreciable rubs, murmurs or gallops. ABDOMEN: Soft, nontender, and nondistended. There is no rebound, voluntary guarding, or rigidity. : Deferred. No Rizzo. EXTREMITIES: Non-edematous and not cyanotic. No clubbing. Good capillary refill. SKIN: No skin breakdown. Vital Signs (last 8hr) Date Time Temp Pulse Resp B/P (MAP) Pulse Ox O2 Delivery O2 Flow Rate FiO2 03/18/25 12:00 69 156/79 97 Room Air 03/18/25 11:00 60 146/63 97 Room Air 03/18/25 10:00 63 168/73 96 Room Air 03/18/25 09:30 61 152/74 96 Room Air 03/18/25 09:00 62 150/68 96 Room Air 03/18/25 08:45 59 155/76 95 Room Air 03/18/25 08:30 60 152/77 97 Room Air 03/18/25 08:15 97.7 65 16 118/80 96 Room Air 03/18/25 08:15 97.5 62 16 141/64 96 Room Air 03/18/25 08:10 63 17 136/68 95 Room Air 03/18/25 08:05 65 16 130/65 96 Room Air 03/18/25 08:00 96 Room Air* 0 21 03/18/25 08:00 64 17 122/59 98 Room Air 03/18/25 07:55 70 16 121/67 99 Nonrebreathing Mask 10.0 03/18/25 07:50 65 17 114/63 99 Nonrebreathing Mask 10.0 03/18/25 07:45 97.5 67 16 119/58 100 Nonrebreathing Mask 10.0 03/18/25 07:00 Mask 10.0 03/18/25 07:00 Mask LABS: Laboratory: Test 03/18/25 10:48 03/18/25 03:15 03/17/25 21:50 03/17/25 09:10 Range/Units Whole Blood Glucose 81 70-110 MG/DL White Blood Count 4.6 L 4.8-10.8 K/uL Red Blood Count 4.82 4.00-5.50 MIL/uL Hemoglobin 11.5 L 12.0-16.0 g/dL Hematocrit 37.4 36-48 % Mean Corpuscular Volume 77.6 L 79-99 fL Mean Corpuscular Hemoglobin 23.9 L 27.0-33.0 pg Mean Corpuscular Hemoglobin Concent 30.7 L 32.0-36.0 g/dL Red Cell Distribution Width 21.9 H 11.0-15.5 % Platelet Count 307 130-400 K/uL Mean Platelet Volume 9.8 7.5-10.5 fL Immature Granulocyte % (Auto) 0.2 0-1 % Neutrophils (%) (Auto) 65.6 40.0-77.0 % Lymphocytes (%) (Auto) 20.2 L 21.0-51.0 % Monocytes (%) (Auto) 10.5 3.0-13.0 % Eosinophils (%) (Auto) 3.1 0.0-8.0 % Basophils (%) (Auto) 0.4 0.0-5.0 % Neutrophils # (Auto) 3.0 1.8-7.7 K/uL Lymphocytes # (Auto) 0.9 L 1.0-4.8 K/uL Monocytes # (Auto) 0.5 0.1-1.0 K/uL Eosinophils # (Auto) 0.14 0.00-0.70 K/uL Basophils # (Auto) 0.02 0.00-0.20 K/uL Absolute Immature Granulocyte (auto 0.01 0-1 K/uL Nucleated Red Blood Cells 0.0 0.0-0.19 % Sodium Level 141 136-145 mmol/L Potassium Level 3.5 3.5-5.1 mmol/L Chloride Level 105 101-111 mmol/L Carbon Dioxide Level 23 21-32 mmol/L Blood Urea Nitrogen 10 7-18 mg/dL Creatinine 0.9 0.5-1.0 mg/dL Glomerular Filtration Rate Calc 65 >90 mL/min Random Glucose 73 70-105 mg/dL Hemoglobin A1c 5.0 4.0-6.0 % Estimated Average Glucose (eAG) 97 70-126 mg/dL Lactic Acid Level 1.1 0.8-2.5 mmol/L Total Calcium 8.5 8.5-10.1 mg/dL Magnesium Level 1.60 L 1.80-2.40 mg/dL Total Bilirubin 1.3 H 0.2-1.0 mg/dL Direct Bilirubin 0.6 H 0.0-0.3 mg/dL Aspartate Amino Transf (AST/SGOT) 275 H 10-37 U/L Alanine Aminotransferase (ALT/SGPT) 47 # 12-78 U/L Alkaline Phosphatase 184 H 50-136 U/L Ammonia 23 11-32 umol/L Total Creatine Kinase 37 21-232 U/L B-Type Natriuretic Peptide 217 H 0-100 pg/mL Total Protein 6.1 # 6.0-8.3 g/dL Albumin 2.8 L 3.5-5.0 g/dL Amylase Level 47 # 25-115 U/L Lipase 21 16-77 U/L Procalcitonin 12.48 H 0.05-0.5 ng/mL SARS-CoV-2 Antigen (Rapid) PRESUMPTIVE NEGATIVE NEGATIVE Prothrombin Time 11.9 H 9.6-11.6 SEC Prothromb Time International Ratio 1.14 0.85-1.15 Activated Partial Thromboplast Time 29.3 26.3-35.5 SEC Test 03/17/25 06:51 03/17/25 05:53 03/17/25 05:30 Range/Units Urine Color YELLOW YELLOW Urine Appearance CLEAR CLEAR Urine pH 5.5 5.0-8.0 Urine Specific [place] 1.013 1.001-1.031 Urine Protein 10 H NEGATIVE mg/dL Urine Glucose (UA) NEGATIVE NEGATIVE mg/dL Urine Ketones 5 H NEGATIVE mg/dL Urine Occult Blood NEGATIVE NEGATIVE Urine Nitrate NEGATIVE NEGATIVE Urine Bilirubin NEGATIVE NEGATIVE mg/dL Urine Urobilinogen 2.0 H 0.2-1.0 mg/dL Urine Leukocyte Esterase 250 H NEGATIVE [place]/uL Urine RBC 0-1 0-1 /HPF Urine WBC 11-25 H 0-1 /HPF Urine Squamous Epithelial Cells RARE 0-2 /HPF Urine Non-Squamous Epithelial Cells 1 0-2 /HPF Urine Bacteria RARE None Seen /HPF Stool Occult Blood POSITIVE H NEGATIVE Red Blood Cell Morphology See comments Current Medications Medications (Trade) Dose Ordered Sig/Jorgito Route PRN Reason Start Time Stop Time Status Last Admin Dose Admin Acetaminophen (TYLenol 325MG TAB) 650 mg Q4H PRN PO MILD PAIN (1-3) 03/17/25 07:30 03/17/25 07:27 DC Acetaminophen (TYLenol 325MG TAB) 650 mg Q6H PRN PO MILD PAIN (1-3) 03/17/25 07:30 04/16/25 07:29 Acetaminophen (TYLenol 325MG TAB) 650 mg Q6H PRN PO TEMPERATURE GREATER THAN 101.5 03/17/25 07:30 04/16/25 07:29 Al Hydroxide/Mg Hydroxide (MAALox PLUS 30ML) 30 ml Q6H PRN PO INDIGESTION 03/17/25 07:30 04/16/25 07:29 Dextrose (D50w) 50 ml AD PRN IV HYPOGLYCEMIA PROTOCOL 03/17/25 07:30 04/16/25 07:29 Diphenhydramine HCl (BENAdryl INJ) 25 mg Q6H PRN IV SEVERE ITCHING/RASH 03/17/25 07:30 04/16/25 07:29 Famotidine (Pepcid 20mg Vial) 20 mg BID PRN IV NAUSEA/VOMITING 03/17/25 07:30 03/17/25 07:27 DC Famotidine (Pepcid 20mg Vial) 20 mg Q48H IV 03/17/25 09:00 04/16/25 08:59 03/17/25 07:55 20 MG Glucagon (Glucagon 1mg Kit) 1 mg AD PRN IM HYPOGLYCEMIA PROTOCOL 03/17/25 07:30 04/16/25 07:29 Guaifenesin/ Dextromethorphan (RobiTUSSin DM 200/20MG 10ML) 10 ml Q4H PRN PO COUGH 03/17/25 07:30 04/16/25 07:29 Hydralazine HCl (APRESOLine 20MG INJ) 10 mg Q6H PRN IV For:SBP above 160;DBP above 90 03/17/25 07:30 04/16/25 07:29 Insulin Human Regular (humuLIN R 100 UNIT/ML 3ML) INSULIN SLIDING SCAL... ACHS SQ 03/17/25 07:30 04/16/25 07:29 Ketorolac Tromethamine (toRADol) 15 mg Q8H PRN IV MODERATE PAIN (4-6) 03/17/25 07:30 03/22/25 07:29 Lactulose (Constulose 20gm/ 30ml Udcup) 20 gm BID PRN PO CONSTIPATION 03/17/25 07:30 04/16/25 07:29 Magnesium Sulfate 50 ml @ 0 mls/hr PROTOCOL IV 03/17/25 07:30 03/18/25 10:48 DC 03/18/25 03:56 25 MLS/HR Magnesium Sulfate 50 ml @ 0 mls/hr PROTOCOL IV 03/18/25 11:00 04/17/25 10:59 Magnesium Sulfate 50 ml @ 0 mls/hr PROTOCOL PRN IV other 03/17/25 07:30 03/17/25 07:23 DC Morphine Sulfate (morPHINE 2MG SYG) 1 mg Q4H PRN IVP SEVERE PAIN (7-10) 03/17/25 07:30 03/24/25 07:29 Nitroglycerin (Nitrostat) 0.4 mg PROTOCOL PRN SL CHEST PAIN 03/17/25 07:30 04/16/25 07:29 Ondansetron HCl (zoFRAN 4MG INJ) 4 mg Q6H PRN IV NAUSEA/VOMITING 03/17/25 07:30 04/16/25 07:29 Piperacillin Sod/ Tazobactam Sod 50 ml @ 12.5 mls/hr Q12H IV 03/17/25 08:00 03/27/25 07:59 03/18/25 09:42 12.5 MLS/HR Polyethylene Glycol/ Electrolytes (Golytely/Colyte Soln) 4,000 ml ONCE PO 03/17/25 15:00 03/17/25 21:00 DC 03/17/25 15:56 4,000 ML Potassium Chloride 100 ml @ 100 mls/hr AD PRN IV POTASSIUM PROTOCOL 03/17/25 07:30 03/18/25 04:02 DC Potassium Chloride 100 ml @ 100 mls/hr AD PRN IV POTASSIUM PROTOCOL 03/18/25 04:00 04/17/25 03:59 03/18/25 06:34 100 MLS/HR Potassium Chloride (K-Dur/Klor-Con 20meq) 10 meq AD PRN PO POTASSIUM PROTOCOL 03/17/25 07:30 04/16/25 07:29 Potassium Chloride (KCl 10% Elixir 20meq/15ml) 10 meq AD PRN PO POTASSIUM PROTOCOL 03/17/25 07:30 04/16/25 07:29 Sodium Chloride 1,000 ml @ 100 mls/hr Q10H IV 03/17/25 07:30 04/16/25 07:29 03/18/25 03:22 100 MLS/HR Zolpidem Tartrate (AmbIEN) 5 mg HS PRN PO INSOMNIA 03/17/25 07:30 04/16/25 07:29 DIAGNOSTICS / RADIOLOGY: [ ] ASSESSMENT: [Acute blood loss POA Acute GI bleed POA New/recent diagnosis of hepatic cell carcinoma not a candidate for surgery POA Uncontrolled hypertension POA Acute kidney injury POA Acute dehydration POA Elevated liver enzymes POA Acute complicated cystitis POA Stool occult positive POA Multifactorial anemia possibly due to above POA Hyperlipidemia POA ] PLAN: [ Admit to: Medical-surgical floor with tele Consults: GI. Patient denies consultation of oncologist Antibiotics: Zosyn Tests: None NEURO: Minimize central acting medications as possible. Fall Precautions. Well lighted room through the day and minimize interruptions through the night to prevent acute delirium. PULMONARY: Chest x-ray pending Supplemental 02 as needed BiPAP as necessary, for respiratory distress Titrate Fio2 to keep Spo2 > or = 90% DuoNebs and CPT as needed IS hourly while awake for pulmonary hygiene Out of bed to chair as tolerated VAP Bundle Maintain aspiration precautions at all times CARDIOVASCULAR: Follow hemodynamics. Vital signs per facility protocol GI & NUTRITION: Colonoscopy 03/18/[address] abdomen/pelvis pending Continue nutritional support Aspirations precautions Prokinetic agents and laxatives as needed KIDNEYS & ELECTROLYTES: Strict monitoring of intake and output Daily weights Avoid nephrotoxic agents Monitor electrolytes and replace as needed Goal urine output of 30mL/hr or 0.5mL/kg/hr Medications to be dosed according to renal function. Avoid contrast if possible ENDOCRINE: Maintain blood glucose between 100-180 at all times. Insulin sliding scale for blood glucose management Hypoglycemia and hyperglycemia protocol in place INFECTIOUS DISEASE: Trend temperature, WBC and procalcitonin level Follow cultures, deescalate antibiotics as soon as possible. Panculture if new onset fever HEMATOLOGY & COAGULATION: Monitor H&H. Keep Hgb > 7 Transfuse 1 unit of PRBC for Hgb < 7 Transfuse 1 pack of platelets of platelets < 20, 000 Watch for any signs and symptoms of bleeding SKIN: Pressure ulcer prevention per facility protocol Specialty mattress as needed Treatment plan discussed with patient and family at the bedside Medications to be reconciled once obtained by patient and/or family and available to be reconciled in computer p.r.n. medication for pain nausea and vomiting Questions were answered We will continue to monitor the patient closely Security Flex Utility Officer for disposition Rehab: PT/OT GI: PPI DVT: SCD's Code Status: Full Resuscitation Disposition: Home Prognosis: Guarded] ATTESTATION BY PHYSICIAN I have seen and examined the patient. I reviewed the documentation, medical decision making, and treatment plan as noted by the mid-level provider above. I agree with the findings and plan of care. LEONIDAS ROGERS MD, KATARZYNA B DRUM FILLER Mar 18, 2025 13:10
--- NOTE | 2025-03-18 16:26 | NUR ---
DCP CM MET WITH PT INITIAL ASSESSMENT DONE. PATIENT IS SEMI-INDEPENDENT PRIOR TO ADMISSION, RE-ADMISSION, WAS ADMITTED BEGINNING OF MONTH, HX LIVER CANCER NOT A CHEMO CANDIDATE, PT DID NOT FOLLOW UP YET WITH ONCOLOGIST IN [place], PT LIVES AT HOME ALONE. PATIENT HAS A CANE, WALKER, PROVIDER 4HRS DAILY. USES [facility] FOR MEDS. DENIES ANY OTHER EQUIPMENT/SERVICES. FEELS SAFE TO GO BACK HOME, SISTER AND PROVIDER ABLE TO ASSIST WITH TRANSPORTATION AND NEEDS NECESSARY. OFFERED POSSIBLE SHORT TERM REHAB PENDING MD RECOMMENDATIONS, PT PREFERRED TO GO HOME ONCE STABLE. DCP HOME ONCE STABLE. CM TO CONTINUE TO FOLLOW UP. Addendum: 03/18/25 at 1630 by TAL PRICE LVN CM Amended: Links added.
--- NOTE | 2025-03-18 19:55 | NUR ---
MEDS SHIFT ASSESSMENT DONE, PLEASE REFER TO CHART. DUE MEDS ADMINISTERED, TOLERATED WELL. KEPT RESTED AND COMFORTABLE IN BED. CALL LIGHT WITHIN REACH.
--- NOTE | 2025-03-18 21:29 | HMCIMG ---
EXAM: CT Abdomen and Pelvis without IV contrast CLINICAL HISTORY: GI bleed. TECHNIQUE: Thin collimated axial CT images of the abdomen and pelvis were obtained, with sagittal and coronal reformatted images also submitted. A CT scan is done according to ALARA (As Low As Reasonably Achievable). CONTRAST: None COMPARISON: Prior CT abdomen and pelvis without date 02/28/2025 FINDINGS: Unremarkable visualized lung parenchyma. Mild heterogeneous coarse attenuation of the liver with subtle widening of the interlobar fissures and caudate lobe hypertrophy. A large exophytic lesion from segment 6 of the liver measuring 9.3 x 9.0 cm. The lesion causes mild mass effect on the right kidney and displaces it posteriorly. No obvious focal abnormality is identified in the gallbladder, pancreas, kidneys, adrenals, or the spleen. Scattered diverticulosis of the distal descending and sigmoid colon. There is a short segment wall thickening of the proximal sigmoid colon with a maximum thickness of 1.7 cm. Small omental fat containing umbilical hernia (16 x 6 mm) Bowel loops are normal in caliber without evidence of obstruction or ileus. The appendix is normal. There is no abnormality within the urinary bladder. A 12 x 11 mm calcified lesion in the right ovary. The uterus and left ovary appear unremarkable. Abdominal and pelvic vessels were limited in evaluation due to a lack of intravenous contrast. No evidence of aneurysmal dilatation of the abdominal aorta No lymphadenopathy. Minimal free fluid in the pouch of Dez. There is no acute osseous abnormality. Degenerative changes in the sacroiliac, superolateral joint, and multilevel degenerative facet arthropathy. Minimal retrolisthesis of L1 over L2 and L3 over L4. Multilevel severe degenerative facet arthropathy. Moderate to severe narrowing of the neural foramina at L4-L5 and L5-S1 level. IMPRESSIONS: Scattered colonic diverticula. There is a short segment concentric wall thickening in the proximal sigmoid colon with a maximum thickness of 1.7 cm, it could be secondary to acute sigmoid diverticulitis or acute colitis. Mild heterogeneous coarse attenuation of the liver with subtle widening of the interlobar fissures and caudate lobe hypertrophy. A large exophytic lesion from segment 6 of the liver measuring 9.3 x 9.0 cm suggests further evaluation with triphasic CT abdomen. Sigmoid colon thickening is a new finding compared to the previous CT dated 02/28/2025. Remaining findings are grossly unchanged. /[place]
--- NOTE | 2025-03-18 23:34 | NUR ---
BUSINESS PROCESS ENGINEER EVALUATED PT TO BE DOWNGRADED TO MS WITH RUBI SOTO AND PT QUALIFIES PER PROTOCOL. PAGED BUSINESS PROCESS ENGINEER POTTER OR CERAMIC ARTIST VIA ANSWERING SERVICE. BUSINESS PROCESS ENGINEER JIMMY CALLED BACK AND REFERRED TELE STATUS. BUSINESS PROCESS ENGINEER STATED TO KEEP PT ON TELE MONITORING STILL.
[2025-03-19 03:00] VITALS: BP 156/79; PULSE 76; RESP 18; TEMP 97.8
[2025-03-19 04:09] LABS: IMMATURE GRANULOCYTE ABSOLUTE 0.00 K/uL (0-1); NUCLEATED RED BLOOD CELLS 0.0 % (0.0-0.19); PLATELET COUNT (AUTO) 292 K/uL (130-400); RED BLOOD CELL COUNT(AUTO) 4.61 MIL/uL (4.00-5.50); RED CELL DISTRIBUTION WIDTH 22.0 % (11.0-15.5); WHITE BLOOD COUNT (AUTO) 4.2 K/uL (4.8-10.8)
[2025-03-19 04:32] LABS: ASPARTATE AMINOTRANSFERASE 227.0 U/L (10-37); CREATININE 0.9 mg/dL (0.5-1.0); GLOMERULAR FILTR. RATE CALC 65.0 mL/min (>90); GLUCOSE,RANDOM 93.0 mg/dL (70-105); SODIUM SERUM 142.0 mmol/L (136-145); TOTAL PROTEIN, SERUM 6.3 g/dL (6.0-8.3); UREA NITROGEN, BLOOD 9.0 mg/dL (7-18)
[2025-03-19] MEDS: PoTASSium chloRIDE 20MEQ ER 20 MEQ ERTAB PO PRN (05:22)
[2025-03-19] MEDS: MAGNESIUM 2GM PREMIX 50ML 50 ML IV SCH (05:23)
--- NOTE | 2025-03-19 05:23 | NUR ---
MEDS PT SLEPT AT INTERVALS DURING THE SHIFT. NO DISTRESS NOTED. KCL AND MG REPLACEMENT STARTED PER PROTOCOL, TOLERATED WELL. KEPT RESTED IN BED. CALL LIGHT WITHIN REACH. FOR MORE CARE.
[2025-03-19] MEDS ORDERED: PoTASSium chloRIDE 10MEQ SR 10 MEQ/TAB TAB.SR.24H PO PRN (07:00)
[2025-03-19 08:00] VITALS: O2SAT 98
[2025-03-19 08:09] VITALS: BP 149/71; PULSE 75; RESP 16; TEMP 97.6
[2025-03-19] MEDS: MAGNESIUM OXIDE 400 MG TABLET PO ONE (08:18)
[2025-03-19] MEDS: PoTASSium chloRIDE 20MEQ ER 20 MEQ ERTAB PO ONE (08:18)
[2025-03-19 08:19] VITALS: BP 149/77
[2025-03-19] MEDS ORDERED: LEVO-70 PO (08:55)
--- NOTE | 2025-03-19 09:01 | DS ---
Discharge Summary Hospital Course Summary: DATE OF ADMISSION: 03/17/25 DATE OF DISCHARGE:[03/19/2025] DISPOSITION:[Home] CONDITION:[Medically stable] CONSULTANTS:[GI] FOLLOW UP APPOINTMENTS:[PCP 2 to 3 days. GI 1 to 2 weeks.] PROCEDURES:[Colonoscopy 03/18/2025] IMAGING: report attached to summary MICROBIOLOGY: report attached to summary ACTIVITY:[Independent] HOME MEDICATIONS: see [facility] NEW MEDICATIONS:[Levofloxacin] EMERGENCY INSTRUCTIONS: The patient was instructed to present to the nearest Emergency departmentr or call 911 once their symptoms will return or worsen Nurse Staff [facility](s): Patient is 80 years old female who came to emergency department for evaluation of rectal bleed that started about 2 hours prior coming to ER. Patient was also complaining of lower abdominal pain. Patient has saw some red blood that came out of her rectum. On admission CT abdomen/pelvis was performed and shows scattered colonic diverticula. There was short-segment concentric wall thickening in the proximal sigmoid colon with a maximal thickening of 1.7 cm it could be secondary to acute sigmoid diverticulitis or acute colitis. Mild heterogenous course attenuation of the liver with subtotal widening of the interlobar fissures and caudate lobe hypertrophy. A large exophytic lesion from segment six of the liver measuring 9.3 x 9 cm suggest further evaluation with triphasic CT abdomen. Sigmoid colon thickening in the new findings compared to previous CT detail grossly unchanged. Chest x-ray no acute pulmonary pathology is evident. GI was consulted and performed colonoscopy 03/18/2025. Polyp was removed. Patient was placed on regular diet. Today patient was re-evaluated patient denies any shortness of breath, chest pain, nausea, vomiting. Patient is tolerating diet well. H&H stable. GI cleared the patient follow up outpatient within 1 to 2 weeks. Patient was also advised to follow up with PCP in 2 to 3 days. Procedure(s): REVIEW OF SYSTEMS CONSTITUTIONAL: Denies fevers, chills, or night sweats. No unintentional weight loss reported. NEUROLOGICAL: Denies headache, amaurosis fugax, motor weakness, sensory deficit, vertigo/spinning sensation, gait abnormalities, or tremors. ENT: No hearing loss, otalgia, otorrhea, rhinitis, rhinorrhea, hoarseness, or sore throat. CARDIOVASCULAR: Denies any exertional angina, dyspnea on exertion, orthopnea, paroxysmal nocturnal dyspnea, palpitations, life-threatening arrhythmias, claudication. PULMONARY: Denies any shortness of breath, cough, phlegm/sputum, hemoptysis, pleuritic chest pain. SLEEP: Denies morning headaches, daytime somnolence or napping. Denies difficulty falling asleep, staying asleep, waking from sleep. Denies knowledge of snoring. GASTROINTESTINAL: Denies any type of dysphagia to either liquids or solids. Denies nausea, vomiting, pyrosis, early satiety, , diarrhea, constipation, or changes in stool consistency or caliber. Denies coffee-ground emesis, hematemesis, hematochezia, denies any abdominal pain GENITOURINARY: Denies frequency, urgency, nocturia, hematuria or incontinence (Storage/Irritative symptoms.) Low urinary stream, straining to void, urinary intermittency or hesitancy, splitting of the voiding stream, terminal dribbling. ENDOCRINOLOGIC: Denies polyuria, polydipsia, polyphagia or heat/cold intolerances. HEMATOLOGIC: Denies thrombophilia/previous clots, or coagulopathy/bleeding disorders. ONCOLOGIC: Denies personal history of malignancy. DERMATOLOGIC: Denies rashes or pruritus. PSYCHIATRIC: Denies any suicidal or homicidal ideation. Denies hallucinations. PHYSICAL EXAM GENERAL APPEARANCE: The patient is awake, alert, and oriented, in no acute cardiopulmonary distress. NEUROLOGICAL: Cranial nerves II-XII grossly intact. Motor is 5/5 in bilateral upper and lower extremities proximal to distal. No sensory deficits. HEENT: Face is symmetric. Pupils are equal and reactive. Extraocular movements are intact. NECK: Supple. No JVD. No thyromegaly. No submental, submandibular, pre- /postauricular, occipital or supraclavicular lymphadenopathy. CHEST: Normal chest expansion. No Telemetry. LUNGS: Absence of any rales, rhonchi or any wheezing. CARDIOVASCULAR: Regular. S1 and S2 normal. No appreciable rubs, murmurs or gallops. ABDOMEN: Soft, nontender, and nondistended. There is no rebound, voluntary guarding, or rigidity. : Deferred. No Rizzo. EXTREMITIES: Non-edematous and not cyanotic. No clubbing. Good capillary refill. SKIN: No skin breakdown. Assessment/Plan: ASSESSMENT: [Acute blood loss POA Acute GI bleed POA New/recent diagnosis of hepatic cell carcinoma not a candidate for surgery POA Uncontrolled hypertension POA Acute kidney injury POA Acute dehydration POA Elevated liver enzymes POA Acute complicated cystitis POA Stool occult positive POA Multifactorial anemia possibly due to above POA Hyperlipidemia POA Home Medications: Active Scripts Ondansetron HCl (Ondansetron HCl) 4 Mg Tablet, 1 TAB PO Q4HPRN PRN for nausea/vomiting for 7 Days, #42 TAB 0 Refills Prov:FRITZ PEDROZA MD 03/01/25 Reported Medications Carvedilol (Carvedilol) 12.5 Mg Tablet, 1 TAB PO BID 03/17/25 Omeprazole (Omeprazole) 40 Mg Capsule.dr, 1 CAP PO DAILY 03/17/25 Losartan Potassium (Losartan Potassium) 100 Mg Tablet, 1 TAB PO DAILY 01/27/25 Discontinued Scripts Amoxicillin/Potassium Clav (Augmentin 500-125 Tablet) 500 Mg-125 Mg Tablet, 1 TAB PO BID for 5 Days, #10 TAB 0 Refills Prov:FRITZ PEDROZA MD 03/01/25 Time spent arranging discharge: 31-60 minutes ATTESTATION BY PHYSICIAN I have seen and examined the patient. I reviewed the documentation, medical decision making, and treatment plan as noted by the mid-level provider above. I agree with the findings and plan of care. LEONIDAS ROMERO MD, KATARZYNA B INFORMATION ARCHITECT Mar 19, 2025 09:01
--- NOTE | 2025-03-19 10:25 | NUR ---
PATIENT DISCHARGED HOME ID BAND,IV AND TELE MARTINEZ REMOVED.DISCHARGE INSTRUCTIONS EXPLAINED AND GIVEN TO PATIENT. PATIENT VERBALIZED UNDERSTANDING. BELONGINGS PACKED AND TAKEN BY PATIENT. PATIENT WHEELED DOWN TO PRIVATE CAR.
--- NOTE | 2025-03-19 23:25 | PN ---
GASTROENTEROLOGY PROGRESS NOTE Date of Visit: Mar 19, 2025 Time of Visit: 23:25 Events / Notes: [ ] Review of Systems: CONSTITUTIONAL: No malaise or change in sensation of wellbeing. ENMT: No rhinorrhea, otorrhea, sinus pain, ear ache. CARDIOVASCULAR: No angina, palpitations, orthopnea or paroxysmal dyspnea. RESPIRATORY: No SOB. GASTROINTESTINAL: No abdominal pain, nausea, vomiting, diarrhea, hematemesis, melena or change in the patient's habitual bowel movements consistency/number. GENITOURINARY: No dysuria, hematuria or change in bladder continence. MUSCULOSKELETAL: No new muscle pain or decrease in muscular strength. No new joint swelling, redness or tenderness. SKIN: No new rash. Physical Exam: GEN: Awake, alert, oriented in person, time and place, and in no acute distress. HEENT: No sinus tenderness. Tympanic membranes were not examined. No rhinorrhea. Oral pharyngeal mucosa is pink, moist and within normal limits. Neck is supple with no cervical lymphadenopathy, thyromegaly or JVD. CHEST: Inspection, palpation and percussion of the chest were unremarkable. Lung auscultation revealed normal breath sounds bilaterally. CARDIAC: PMI is within normal limits. Heart sounds are regular. Normal S1, S2. No gallop or murmur. ABD: Soft, non-tender and not distended. No peritoneal signs on palpation. No organomegaly. Normal bowel sounds. EXT: No cyanosis or clubbing. No edema. SKIN: Intact. No rashes. JOINTS: No evidence of synovitis or acute arthritis. NEURO: Alert and oriented to name, place and person. Cranial nerve examination is unremarkable. No focal motor deficits. Normal speech. Gait is normal. Strength is normal. Laboratory: [ ] Laboratory: Test 03/19/25 05:03 03/19/25 03:35 03/18/25 03:15 Range/Units Whole Blood Glucose 84 70-110 MG/DL White Blood Count 4.2 L 4.8-10.8 K/uL Red Blood Count 4.61 4.00-5.50 MIL/uL Hemoglobin 11.0 L 12.0-16.0 g/dL Hematocrit 35.7 L 36-48 % Mean Corpuscular Volume 77.4 L 79-99 fL Mean Corpuscular Hemoglobin 23.9 L 27.0-33.0 pg Mean Corpuscular Hemoglobin Concent 30.8 L 32.0-36.0 g/dL Red Cell Distribution Width 22.0 H 11.0-15.5 % Platelet Count 292 130-400 K/uL Mean Platelet Volume 10.0 7.5-10.5 fL Immature Granulocyte % (Auto) 0.0 0-1 % Neutrophils (%) (Auto) 62.8 40.0-77.0 % Lymphocytes (%) (Auto) 22.8 21.0-51.0 % Monocytes (%) (Auto) 10.3 3.0-13.0 % Eosinophils (%) (Auto) 3.6 0.0-8.0 % Basophils (%) (Auto) 0.5 0.0-5.0 % Neutrophils # (Auto) 2.6 1.8-7.7 K/uL Lymphocytes # (Auto) 1.0 1.0-4.8 K/uL Monocytes # (Auto) 0.4 0.1-1.0 K/uL Eosinophils # (Auto) 0.15 0.00-0.70 K/uL Basophils # (Auto) 0.02 0.00-0.20 K/uL Absolute Immature Granulocyte (auto 0.00 0-1 K/uL Nucleated Red Blood Cells 0.0 0.0-0.19 % Sodium Level 142 136-145 mmol/L Potassium Level 3.3 L 3.5-5.1 mmol/L Chloride Level 108 101-111 mmol/L Carbon Dioxide Level 23 21-32 mmol/L Blood Urea Nitrogen 9 7-18 mg/dL Creatinine 0.9 0.5-1.0 mg/dL Glomerular Filtration Rate Calc 65 >90 mL/min Random Glucose 93 70-105 mg/dL Total Calcium 8.6 8.5-10.1 mg/dL Magnesium Level 1.80 1.80-2.40 mg/dL Total Bilirubin 1.1 H 0.2-1.0 mg/dL Aspartate Amino Transf (AST/SGOT) 227 H 10-37 U/L Alanine Aminotransferase (ALT/SGPT) 42 12-78 U/L Alkaline Phosphatase 175 H 50-136 U/L Total Protein 6.3 6.0-8.3 g/dL Albumin 2.6 L 3.5-5.0 g/dL Hemoglobin A1c 5.0 4.0-6.0 % Estimated Average Glucose (eAG) 97 70-126 mg/dL Lactic Acid Level 1.1 0.8-2.5 mmol/L Direct Bilirubin 0.6 H 0.0-0.3 mg/dL Ammonia 23 11-32 umol/L Total Creatine Kinase 37 21-232 U/L B-Type Natriuretic Peptide 217 H 0-100 pg/mL Amylase Level 47 # 25-115 U/L Lipase 21 16-77 U/L Procalcitonin 12.48 H 0.05-0.5 ng/mL Current Medications Medications (Trade) Dose Ordered Sig/Jorgito Route PRN Reason Start Time Stop Time Status Last Admin Dose Admin Acetaminophen (TYLenol 325MG TAB) 650 mg Q4H PRN PO MILD PAIN (1-3) 03/17/25 07:30 03/17/25 07:27 DC Acetaminophen (TYLenol 325MG TAB) 650 mg Q6H PRN PO TEMPERATURE GREATER THAN 101.5 03/17/25 07:30 03/19/25 11:16 DC Acetaminophen (TYLenol 325MG TAB) 650 mg Q6H PRN PO MILD PAIN (1-3) 03/17/25 07:30 03/19/25 11:17 DC Al Hydroxide/Mg Hydroxide (MAALox PLUS 30ML) 30 ml Q6H PRN PO INDIGESTION 03/17/25 07:30 03/19/25 11:16 DC Carvedilol (Coreg 12.5MG) 12.5 mg BID PO 03/18/25 21:00 03/19/25 11:17 DC 03/19/25 08:19 12.5 MG Dextrose (D50w) 50 ml AD PRN IV HYPOGLYCEMIA PROTOCOL 03/17/25 07:30 03/19/25 11:16 DC Diphenhydramine HCl (BENAdryl INJ) 25 mg Q6H PRN IV SEVERE ITCHING/RASH 03/17/25 07:30 03/19/25 11:16 DC Famotidine (Pepcid 20mg Vial) 20 mg BID PRN IV NAUSEA/VOMITING 03/17/25 07:30 03/17/25 07:27 DC Famotidine (Pepcid 20mg Vial) 20 mg Q48H IV 03/17/25 09:00 03/19/25 06:29 DC 03/17/25 07:55 20 MG Glucagon (Glucagon 1mg Kit) 1 mg AD PRN IM HYPOGLYCEMIA PROTOCOL 03/17/25 07:30 03/19/25 11:16 DC Guaifenesin/ Dextromethorphan (RobiTUSSin DM 200/20MG 10ML) 10 ml Q4H PRN PO COUGH 03/17/25 07:30 03/19/25 11:17 DC Hydralazine HCl (APRESOLine 20MG INJ) 10 mg Q6H PRN IV For:SBP above 160;DBP above 90 03/17/25 07:30 03/19/25 11:17 DC Insulin Human Regular (humuLIN R 100 UNIT/ML 3ML) INSULIN SLIDING SCAL... ACHS SQ 03/17/25 07:30 03/19/25 11:16 DC Ketorolac Tromethamine (toRADol) 15 mg Q8H PRN IV MODERATE PAIN (4-6) 03/17/25 07:30 03/19/25 11:17 DC Lactulose (Constulose 20gm/ 30ml Udcup) 20 gm BID PRN PO CONSTIPATION 03/17/25 07:30 03/19/25 11:16 DC Losartan Potassium (CozAAR 100MG TAB) 100 mg DAILY PO 03/19/25 09:00 03/19/25 11:17 DC 03/19/25 08:18 100 MG Magnesium Sulfate 50 ml @ 0 mls/hr PROTOCOL IV 03/17/25 07:30 03/18/25 10:48 DC 03/18/25 03:56 25 MLS/HR Magnesium Sulfate 50 ml @ 0 mls/hr PROTOCOL IV 03/18/25 11:00 03/19/25 11:17 DC 03/19/25 05:23 25 MLS/HR Magnesium Sulfate 50 ml @ 0 mls/hr PROTOCOL PRN IV other 03/17/25 07:30 03/17/25 07:23 DC Morphine Sulfate (morPHINE 2MG SYG) 1 mg Q4H PRN IVP SEVERE PAIN (7-10) 03/17/25 07:30 03/19/25 11:17 DC Nitroglycerin (Nitrostat) 0.4 mg PROTOCOL PRN SL CHEST PAIN 03/17/25 07:30 03/19/25 11:16 DC Ondansetron HCl (zoFRAN 4MG TABLET) 4 mg Q4H PRN PO nausea/vomiting 03/19/25 07:00 03/19/25 11:17 DC Ondansetron HCl (zoFRAN 4MG TABLET) 4 mg Q4HPRN PRN PO nausea/vomiting 03/18/25 13:30 03/19/25 06:30 DC Ondansetron HCl (zoFRAN 4MG INJ) 4 mg Q6H PRN IV NAUSEA/VOMITING 03/17/25 07:30 03/19/25 06:29 DC Pantoprazole Sodium (PROTonix 40MG TAB) 40 mg DAILY PO 03/19/25 09:00 03/19/25 11:17 DC 03/19/25 08:18 40 MG Piperacillin Sod/ Tazobactam Sod 50 ml @ 12.5 mls/hr Q12H IV 03/17/25 08:00 03/19/25 11:17 DC 03/19/25 08:19 12.5 MLS/HR Polyethylene Glycol/ Electrolytes (Golytely/Colyte Soln) 4,000 ml ONCE PO 03/17/25 15:00 03/17/25 21:00 DC 03/17/25 15:56 4,000 ML Potassium Chloride 100 ml @ 100 mls/hr AD PRN IV POTASSIUM PROTOCOL 03/17/25 07:30 03/18/25 04:02 DC Potassium Chloride 100 ml @ 100 mls/hr AD PRN IV POTASSIUM PROTOCOL 03/18/25 04:00 03/19/25 11:17 DC 03/18/25 06:34 100 MLS/HR Potassium Chloride (K-Dur 10meq Sr Tab) 10 meq AD PRN PO POTASSIUM PROTOCOL 03/19/25 07:00 03/19/25 11:17 DC Potassium Chloride (K-Dur/Klor-Con 20meq) 10 meq AD PRN PO POTASSIUM PROTOCOL 03/17/25 07:30 03/19/25 06:31 DC 03/19/25 05:22 10 MEQ Potassium Chloride (KCl 10% Elixir 20meq/15ml) 10 meq AD PRN PO POTASSIUM PROTOCOL 03/17/25 07:30 03/19/25 11:16 DC Sodium Chloride 1,000 ml @ 100 mls/hr Q10H IV 03/17/25 07:30 03/19/25 11:17 DC 03/19/25 00:42 100 MLS/HR Zolpidem Tartrate (AmbIEN) 5 mg HS PRN PO INSOMNIA 03/17/25 07:30 03/19/25 11:16 DC Diagnostics / Radiology: [COPY/PASTE HERE IF NO REPORTS PLEASE DELETE SECTION] Assessment: [ ] Plan: [ ] SHAYY PULIDO [employer]SE[employer] Mar 19, 2025 23:25
== END 2025-03-19 10:30 | disposition home or self-care (01) ==
LOC: EDH 05:14 → INTOOBSV 07:16 → EDHIP 07:16 → 4AH 13:50
PROVIDERS: ADMIT Internal Medicine; ATTEND Internal Medicine
DX: K62.5 Hemorrhage of anus and rectum (principal); Z20.822 Contact with and (suspected) exposure to COVID-19; K22.89 Other specified disease of esophagus; C22.0 Liver cell carcinoma; K29.70 Gastritis, unspecified, without bleeding; K31.89 Other diseases of stomach and duodenum; E78.5 Hyperlipidemia, unspecified; E86.0 Dehydration; I10 Essential (primary) hypertension; R79.89 Other specified abnormal findings of blood chemistry; N17.9 Acute kidney failure, unspecified; Z85.05 Personal history of malignant neoplasm of liver; Z98.890 Other specified postprocedural states; Z79.899 Other long term (current) drug therapy
CPT/HCPCS: 96361 ×6; 96365; 96366 ×6; 96375; 99285; 80076 ×2; 80048 ×2; 83690 ×2; 85025 ×3; 85610 ×2; 85730 ×2; 86850; 86900; 86901; 87086 ×2; 87186; 82948 ×9; 87426; 82270; 81001; 36415 ×3; 71045; 74176; 97161; 97116 ×2; 97530 ×4; 43235; 96367; 83036; 82150; 82550; 83735 ×2; 83880; 82140; 83605; 88305; 45380; 84145; 80053; G0378 ×51; A4620 ×4; A4223 ×4; A4606 ×3; J3490; J7030 ×3; J2003; J2704 ×2; J2405; J2543 ×5; J2470; A4215 ×4; A4222 ×4; J3475 ×2; J3480; 96374